=== PATIENT | male | born 1980 | race Caucasian/White ===

== ENCOUNTER 2018-12-05 15:58 | Emergency (ER) | payer OTHER ==
[2018-12-05 16:02] VITALS: TEMP 98.9
[2018-12-05] MEDS ORDERED: SODIUM CHLORIDE 0.9% 1,000 ML IV ONE (16:17)
[2018-12-05] MEDS ORDERED: KETOROLAC 30 MG/ML 1 ML VIAL IVP STA (16:17)
[2018-12-05] MEDS ORDERED: FAMOTIDINE 20 MG/2 ML VIAL IV STA (16:17)
--- NOTE | 2018-12-05 16:22 | ED ---
Chest Pain HPI - General Chief Complaint: Chest Pain Stated Complaint: Chest pain Time Seen by Provider: 12/05/18 16:03 Source: patient Mode of arrival: ambulatory Limitations: no limitations - History of Present Illness Initial Comments: 37-year-old alcoholic male presenting with substernal, nonradiating chest pressure that has been present for over a month, is constant, is not alleviated by anything, and is worsened with exertion. He admits to mild shortness of breath but denies any other anginal equivalents. Patient is a daily drinker, has never stopped drinking long enough to see if he would go into withdrawal or have seizures. He has never seen a doctor. He was prompted to come to the emergency department today because he took a CPR Class and became concerned that he may have a heart problem. Patient denies any personal or family history of early NV. He denies any personal history of high cholesterol. Patient does abuse tobacco. He has never had a stress test. - Related Data Home Medications Medication Instructions Recorded Confirmed Lisinopril 30 mg PO DAILY 12/05/18 12/05/18 Previous Rx's Medication Instructions Recorded Ranitidine HCl [Zantac] 150 mg PO HS #30 tab 12/05/18 Allergies Allergy/AdvReac Type Severity Reaction Status Date / Time No Known Allergies Allergy Verified 12/05/18 16:42 Review of Systems ROS Statement: Those systems with pertinent positive or pertinent negative responses have been documented in the HPI. Review of Systems Constitutional: Denies fever, chills Eyes: Denies change in vision, Denies pain Ears, nose, mouth, throat: Denies headaches, Denies sore throat Cardiovascular: Positive chest pain. Denies palpitations Respiratory: Denies shortness of breath, Denies cough Gastrointestinal: Denies abdominal pain. Denies nausea, vomiting, diarrhea. Genitourinary: Denies hematuria, Denies infections Musculoskeletal: Denies pain, Denies swelling Integumentary: Denies rash Neurological: Denies headache, focal weakness, focal numbness Psychiatric: Denies anxiety, Denies depression Hematologic/Lymphatic: Denies easy bleeding or bruising ROS Other: All systems not noted in ROS Statement are negative. EKG Findings - EKG Comments: EKG Findings:: EKG shows sinus tachycardia at a rate of 117 bpm. OH interval 156 ms. QRS duration 94 ms. QT/QTC 326/[address] segment elevation, depression. No prolonged QT/QTc or OH interval. No dysrythmia noted. Past Medical History Past Medical History: No Reported History History of Any Multi-Drug Resistant Organisms: None Reported Past Surgical History: No Surgical Hx Reported Past Psychological History: No Psychological Hx Reported Smoking Status: Current every day smoker Past Alcohol Use History: Occasional Past Drug Use History: None Reported General Exam - General Exam Comments Initial Comments: General: Awake, alert, No acute Distress HENT: Normocephalic. Atraumatic Eyes: PERRL. EOMI. No scleral icterus. No injected conjunctiva Neck: Full ROM Chest/Lungs: Clear to auscultation bilaterally. No wheezing, rhonchi, or rales Cardiac: Sinus tachycardia No murmurs or rubs. No lower extremity edema Abdomen/GI: Soft, nontender, nondistended. No rebound, guarding, or rigidity. Musculoskeletal: Full ROM Skin: Warm, dry, intact Neurologic: A/Ox3, no weakness, no sensory deficit, no abnormal gait, no coordination deficit Limitations: no limitations Course Vital Signs 12/05/18 12/05/18 16:00 17:31 Temperature 98.9 F Pulse Rate 104 H 87 Respiratory 18 16 Rate Blood Pressure 163/97 147/83 O2 Sat by Pulse 97 99 Oximetry Chest Pain MDM - MDM 37-year-old male presenting with 1 month of chest pain. Initial exam the patient is awake, alert, no acute distress. He is tachycardic but vital signs otherwise stable. Perc positive because of his tachycardia. His well score is 0. Patient refusing all medications that were ordered. Patient feels improved in the department. His HEART score is 0. His d-dimer is negative. Patient's CXR is negative for acute process. Doesn't is at bedside who can drive him home, as the patient is intoxicated, however he is chronically sober on exam. Thus the patient taking a daily PPI as his symptoms could be secondary to alcohol gastritis/esophagitis. I have advised him on alcohol cessation, establishing a primary care physician, and seeing a GI doctor. Patient verbalizes understanding. No further emergent workup indicated. The patient was given return to ED instructions. They were instructed to follow up with their primary care provider. Stable for discharge at this time. - Wells Criteria Clinical Symptoms of DVT: (0) No No Alternative Diagnosis: (0) No Immobilization of Surgery in Previous 4 Weeks: (0) No Previous DVT/PE: (0) No Hemoptysis: (0) No Malignancy: (0) No Disposition Clinical Impression: Chest pain, Alcohol abuse Disposition: HOME SELF-CARE Condition: Good Instructions (If sedation given, give patient instructions): Chest Pain (ED), Costochondritis (ED), Gastroesophageal Reflux Disease (ED), Abuse of Alcohol (ED) Additional Instructions: Try to cut down on the amount of alcohol you are ingesting. Make an appointment to see the primary care doctor and follow up within one week. Return if your symptoms worsen. Prescriptions: Ranitidine HCl [Zantac] 150 mg PO HS #30 tab Is patient prescribed a controlled substance at d/c from ED?: No Referrals: Nonstaff,Physician [REFERRING] - 1-2 days Savanna Garcia MD [STAFF PHYSICIAN] - 1-2 days María Miranda MD [Medical Doctor] - 1-2 days
[2018-12-05 16:32] LABS: Basophils # (A) 0.1 k/uL (0-0.2); Basophils % (A) 1 %; Eosinophils # (A) 0.1 k/uL (0-0.7); Eosinophils % (A) 1 %; HCT 49.4 % (39.0-53.0); HGB 16.7 gm/dL (13.0-17.5); Lymphocytes # (A) 2.6 k/uL (1.0-4.8); Lymphocytes % (A) 28 %; MCH 34.2 pg (25.0-35.0); MCHC 33.7 g/dL (31.0-37.0); MCV 101.3 fL (80.0-100.0); Macrocytosis Slight; Mean Platelet Volume 6.9; Monocytes # (A) 0.4 k/uL (0-1.0); Monocytes % (A) 4 %; Neutrophils # (A) 5.9 k/uL (1.3-7.7); Neutrophils % (A) 63 %; Platelet Count 277 k/uL (150-450); RBC 4.88 m/uL (4.30-5.90); RDW 13.7 % (11.5-15.5); WBC 9.3 k/uL (3.8-10.6)
[2018-12-05 16:45] LABS: ALT 90 U/L (21-72); AST 104 U/L (17-59); African American GFR (CKD) >90 (>60 ml/min/1.73 sqM); Albumin 4.5 g/dL (3.5-5.0); Alkaline Phosphatase 96 U/L (38-126); Anion Gap 13 mmol/L; Bilirubin, Delta 0.1 mg/dL (0.0-0.2); Bilirubin,Unconjugated 0.6 mg/dL (0.0-1.1); Blood Urea Nitrogen 14 mg/dL (9-20); Calcium 8.9 mg/dL (8.4-10.2); Carbon Dioxide 21 mmol/L (22-30); Chloride 109 mmol/L (98-107); Glucose 105 mg/dL (74-99); Non-African American GFR(CKD) 84 (>60 ml/min/1.73 sqM); Potassium 4.1 mmol/L (3.5-5.1); Sodium 143 mmol/L (137-145); Total Bilirubin 0.7 mg/dL (0.2-1.3); Total Protein 7.5 g/dL (6.3-8.2)
--- NOTE | 2018-12-05 16:50 | XR ---
EXAMINATION TYPE: XR chest 2V DATE OF EXAM: 12/05/2018 COMPARISON: NONE HISTORY: Chest pain TECHNIQUE: Frontal and lateral views of the chest are obtained. FINDINGS: Heart and mediastinum are normal. Lungs are clear. Diaphragm is normal. Bony thorax appear s normal. IMPRESSION: Normal chest.
[2018-12-05 17:00] LABS: Alcohol 359 mg/dL
[2018-12-05 17:34] VITALS: BP 147/83; PULSE 87; RESP 16
== END 2018-12-05 17:34 | disposition home or self-care (01) ==
LOC: EC 15:58
DX: F10.129 Alcohol abuse with intoxication, unspecified (principal); R07.89 Other chest pain; R00.0 Tachycardia, unspecified; R06.02 Shortness of breath; F17.200 Nicotine dependence, unspecified, uncomplicated; Z82.49 Family history of ischemic heart disease and other diseases of the circulatory system; Z53.20 Procedure and treatment not carried out because of patient's decision for unspecified reasons
CPT/HCPCS: 36415; 71046; 80048; 80076; 80320; 83690; 83735; 84484; 85025; 85379; 93005; 99285

== ENCOUNTER 2019-08-03 17:22 | Inpatient (IN) | payer BC ==
[2019-08-03] MEDS ORDERED: SODIUM CHLORIDE 0.9% 1,000 ML IV STA (17:56)
[2019-08-03] MEDS ORDERED: KETOROLAC 30 MG/ML 1 ML VIAL IVP STA (17:56)
[2019-08-03 18:19] LABS: Basophils # (A) 0.1 k/uL (0-0.2); Basophils % (A) 0 %; Eosinophils # (A) 0.1 k/uL (0-0.7); Eosinophils % (A) 1 %; HCT 47.9 % (39.0-53.0); HGB 17.5 gm/dL (13.0-17.5); Lymphocytes # (A) 1.9 k/uL (1.0-4.8); Lymphocytes % (A) 15 %; MCH 36.2 pg (25.0-35.0); MCHC 36.5 g/dL (31.0-37.0); MCV 99.2 fL (80.0-100.0); Mean Platelet Volume 7.2; Monocytes # (A) 0.7 k/uL (0-1.0); Monocytes % (A) 5 %; Neutrophils # (A) 9.1 k/uL (1.3-7.7); Neutrophils % (A) 76 %; Platelet Count 216 k/uL (150-450); RBC 4.83 m/uL (4.30-5.90); RDW 13.7 % (11.5-15.5)
--- NOTE | 2019-08-03 18:38 | ED ---
Abdominal Pain HPI - General Chief Complaint: Abdominal Pain Stated Complaint: Poss appendicitis Time Seen by Provider: 08/03/19 17:36 Source: patient Mode of arrival: ambulatory Limitations: no limitations - History of Present Illness Initial Comments: Patient is a 38-year-old male presenting to emergency Department with complaints of right-sided abdominal pain 2 days. Patient had a video conference with his PCP who sent him into the ER for evaluation for possible appendicitis. Patient is also having associated nausea, vomiting with this as well however he states he has had vomiting on and off for months now. He has seen his PCP for the vomiting. Patient also admits to being an alcoholic. He states he drinks "a lot each day." Patient states that abdominal pain started yesterday around his belly button and has migrated to his right lower quadrant. He states he feels best when he is laying still. He has increased pain with standing and bending over. He denies any abdominal surgeries in the past. He rates his pain a 6/10. He had normal bowel movement yesterday. He states he's been having chills and sweats but no documented fevers. He denies chest pain, shortness of breath, cough. He has no other complaints at this time. Upon arrival to the ER, his temperature is 99.2, pulse 108, BP 149/104, respiratory rate 18, 97% on room air. - Related Data Home Medications Medication Instructions Recorded Confirmed Escitalopram [Lexapro] 20 mg PO HS 08/03/19 08/03/19 Lisinopril [Zestril] 10 mg PO HS 08/03/19 08/03/19 Allergies Allergy/AdvReac Type Severity Reaction Status Date / Time No Known Allergies Allergy Verified 08/03/19 20:24 Review of Systems ROS Statement: Those systems with pertinent positive or pertinent negative responses have been documented in the HPI. ROS Other: All systems not noted in ROS Statement are negative. Past Medical History Past Medical History: No Reported History History of Any Multi-Drug Resistant Organisms: None Reported Past Surgical History: No Surgical Hx Reported Past Psychological History: No Psychological Hx Reported Smoking Status: Current every day smoker Past Alcohol Use History: Occasional Past Drug Use History: None Reported General Exam - General Exam Comments Initial Comments: GENERAL: Well-appearing, well-nourished and in no acute distress. HEAD: Atraumatic, normocephalic. EYES: Pupils equal round and reactive to light, extraocular movements intact, sclera anicteric, conjunctiva are normal. ENT: TMs normal, nares patent, oropharynx clear without exudates. Moist mucous membranes. NECK: Normal range of motion, supple without lymphadenopathy or JVD. LUNGS: Breath sounds clear to auscultation bilaterally and equal. No wheezes rales or rhonchi. HEART: Regular rate and rhythm without murmurs, rubs or gallops. ABDOMEN: Tender to palpation of the umbilical, right lower quadrant region. Mild tenderness of the right upper quadrant. Positive guarding, positive Rovsing sign. Soft, normoactive bowel sounds. No masses appreciated. : Deferred EXTREMITIES: Normal range of motion, no pitting or edema. No clubbing or cyanosis. NEUROLOGICAL: Normal speech, normal gait. PSYCH: Normal mood, normal affect. SKIN: Warm, Dry, normal turgor, no rashes or lesions noted. Limitations: no limitations Course Vital Signs 08/03/19 08/03/19 17:28 19:17 Temperature 99.2 F Pulse Rate 108 H 94 Respiratory 18 18 Rate Blood Pressure 149/104 132/92 O2 Sat by Pulse 97 99 Oximetry Medical Decision Making - Medical Decision Making Patient is a 38-year-old male presenting with right lower quadrant pain 2 days. Associated nausea and vomiting. Patient admits to being alcoholic. Patient was slightly tachycardia arrival at 108, temp 99.2. Exam reveals right lower quadrant tenderness and mild right upper quadrant tenderness. Laboratory reveals slight leukocytosis at 12, sodium is 131, lactic acid is 1.6. Transaminitis, lipase is normal. Urine is normal. Serum alcohol is 298. CT of the abdomen shows a normal appendix. There is inflammatory changes along an 8 cm segment of the ileum in the right lower quadrant. There is concern for infla mmatory ileitis as well as a Meckels diverticulitis is also consideration. Hepatomegaly is also mention. Patient was given fluids, pain control. He is comfortable at this time. She'll be started on antibiotics. Spoke with Dr. Stokes who recommended admission. Patient will be admitted under Dr. Schafer with surgery on consult. Patient will be started on antibiotics. [facility] protocol in place. Patient is in agreement with this plan of care. Case discussed with Dr. Dunham. - Lab Data Result diagrams: 08/03/19 17:57 08/03/19 17:57 Lab Results 08/03/19 08/03/19 08/03/19 Range/Units 17:57 17:57 17:57 WBC 12.0 H (3.8-10.6) k/uL RBC 4.83 (4.30-5.90) m/uL Hgb 17.5 (13.0-17.5) gm/dL Hct 47.9 (39.0-53.0) % MCV 99.2 (80.0-100.0) fL MCH 36.2 H (25.0-35.0) pg MCHC 36.5 (31.0-37.0) g/dL RDW 13.7 (11.5-15.5) % Plt Count 216 (150-450) k/uL Neutrophils % 76 % Lymphocytes % 15 % Monocytes % 5 % Eosinophils % 1 % Basophils % 0 % Neutrophils # 9.1 H (1.3-7.7) k/uL Lymphocytes # 1.9 (1.0-4.8) k/uL Monocytes # 0.7 (0-1.0) k/uL Eosinophils # 0.1 (0-0.7) k/uL Basophils # 0.1 (0-0.2) k/uL APTT 27.8 (22.0-30.0) sec Sodium 131 L (137-145) mmol/L Potassium 4.4 (3.5-5.1) mmol/L Chloride 100 (98-107) mmol/L Carbon Dioxide 19 L (22-30) mmol/L Anion Gap 12 mmol/L BUN 13 (9-20) mg/dL Creatinine 0.87 (0.66-1.25) mg/dL Est GFR (CKD-EPI)AfAm >90 (>60 ml/min/1.73 sqM) Est GFR (CKD-EPI)NonAf >90 (>60 ml/min/1.73 sqM) Glucose 106 H (74-99) mg/dL Plasma Lactic Acid Jatinder (0.7-2.0) mmol/L Calcium 8.4 (8.4-10.2) mg/dL Magnesium 1.8 (1.6-2.3) mg/dL Total Bilirubin 1.2 (0.2-1.3) mg/dL AST 496 H (17-59) U/L ALT 219 H (4-49) U/L Alkaline Phosphatase 233 H (38-126) U/L Total Protein 7.2 (6.3-8.2) g/dL Albumin 3.9 (3.5-5.0) g/dL Amylase 87 (30-110) U/L Lipase 233 (23-300) U/L Serum Alcohol 298 H* mg/dL 08/03/19 Range/Units 17:57 WBC (3.8-10.6) k/uL RBC (4.30-5.90) m/uL Hgb (13.0-17.5) gm/dL Hct (39.0-53.0) % MCV (80.0-100.0) fL MCH (25.0-35.0) pg MCHC (31.0-37.0) g/dL RDW (11.5-15.5) % Plt Count (150-450) k/uL Neutrophils % % Lymphocytes % % Monocytes % % Eosinophils % % Basophils % % Neutrophils # (1.3-7.7) k/uL Lymphocytes # (1.0-4.8) k/uL Monocytes # (0-1.0) k/uL Eosinophils # (0-0.7) k/uL Basophils # (0-0.2) k/uL APTT (22.0-30.0) sec Sodium (137-145) mmol/L Potassium (3.5-5.1) mmol/L Chloride (98-107) mmol/L Carbon Dioxide (22-30) mmol/L Anion Gap mmol/L BUN (9-20) mg/dL Creatinine (0.66-1.25) mg/dL Est GFR (CKD-EPI)AfAm (>60 ml/min/1.73 sqM) Est GFR (CKD-EPI)NonAf (>60 ml/min/1.73 sqM) Glucose (74-99) mg/dL Plasma Lactic Acid Jatinder 1.6 (0.7-2.0) mmol/L Calcium (8.4-10.2) mg/dL Magnesium (1.6-2.3) mg/dL Total Bilirubin (0.2-1.3) mg/dL AST (17-59) U/L ALT (4-49) U/L Alkaline Phosphatase (38-126) U/L Total Protein (6.3-8.2) g/dL Albumin (3.5-5.0) g/dL Amylase (30-110) U/L Lipase (23-300) U/L Serum Alcohol mg/dL Disposition Clinical Impression: Ileitis, Transaminitis, Abdominal pain Disposition: [facility]MITT[facility] Condition: Stable Is patient prescribed a controlled substance at d/c from ED?: No Decision Date: 08/03/19 Decision Time: 20:20
--- NOTE | 2019-08-03 18:40 | CT ---
EXAMINATION TYPE: CT abdomen pelvis w con DATE OF EXAM: 08/03/2019 COMPARISON: NONE HISTORY: 38-year-old male RLQ pain TECHNIQUE: Contiguous axial scanning of the abdomen and pelvis following administration of 100 ml Iso charu 300 IV contrast. Delayed images through the kidneys and coronal/sagittal reconstructions perform ed. CT DLP: 908.2 mGycm Automated exposure control for dose reduction was used. FINDINGS: LUNG BASES: No significant abnormality is appreciated. LIVER/GB: Liver enlarged at 22.0 cm with marked low attenuation. Portal venous system is patent. No b iliary ductal dilatation. Gallbladder mildly hydropic and 4.2 cm wide but without any surrounding inf lammation, likely due to fasting state. PANCREAS: No significant abnormality is seen. SPLEEN: No significant abnormality is seen. ADRENALS: No significant abnormality is seen. KIDNEYS: No significant abnormality is seen. BOWEL: No dilated small bowel or free air. Prominent fluid-filled small bowel loops throughout. In t he right lower quadrant, there is an 8 cm long segment of abnormal ileum showing variable mild to mod erate circumferential wall thickening, mucosal thickening, and a focal 1.6 cm area of nodular submuco willis enhancement. This segment of small bowel seems to have an end-to-side configuration, refer to cor onal images 35 through 42, with a thickened blind-ending limb. The appendix is visualized and is normal. Mild stool burden. No pericolonic inflammatory change. LYMPH NODES: No mesenteric or retroperitoneal lymphadenopathy. PELVIS: Bladder urine distended. Mild pelvic free fluid noted. No pelvic lymphadenopathy. BONES: No osseous destructive process. IMPRESSION: 1. NORMAL APPENDIX. 2. HOWEVER, THERE IS INFLAMMATION CENTERED ALONG AN 8 CM SEGMENT OF ILEUM IN THE RIGHT LOWER QUADRANT . BOWEL HERE HAS AN UNUSUAL END TO SIDE CONFIGURATION (REFER TO CORONAL IMAGE 42) WITH A THICKENED, B KIA ENDING LIMB (CORONAL IMAGES 35 THROUGH 40). A DEVELOPMENTAL ABNORMALITY AND ASSOCIATED INFECTIOU S/INFLAMMATORY ILEITIS IS A CONSIDERATION. MECKEL'S DIVERTICULITIS IS ALSO A CONSIDERATION. 3. GIVEN A 1.6 CM AREA OF NODULAR SUBMUCOSAL ENHANCEMENT HERE, IF THIS DOES REPRESENT A MECKEL'S DIVE RTICULUM, THE PRESENCE OF ECTOPIC MUCOSA (SUCH GASTRIC MUCOSA) IS A POSSIBILITY. 4. MILD PELVIC FREE FLUID LIKELY REACTIVE TO THE ABOVE-MENTIONED INFLAMMATION. 5. HEPATOMEGALY (22.0 CM) WITH MARKED HEPATIC STEATOSIS. 6. MILD GALLBLADDER HYDROPS LIKELY DUE TO FASTING STATE. CLINICALLY CORRELATE.
[2019-08-03 18:50] LABS: ALT 219 U/L (4-49); AST 496 U/L (17-59); African American GFR (CKD) >90 (>60 ml/min/1.73 sqM); Albumin 3.9 g/dL (3.5-5.0); Alkaline Phosphatase 233 U/L (38-126); Amylase 87 U/L (30-110); Anion Gap 12 mmol/L; Blood Urea Nitrogen 13 mg/dL (9-20); Calcium 8.4 mg/dL (8.4-10.2); Carbon Dioxide 19 mmol/L (22-30); Chloride 100 mmol/L (98-107); Glucose 106 mg/dL (74-99); Magnesium 1.8 mg/dL (1.6-2.3); Non-African American GFR(CKD) >90 (>60 ml/min/1.73 sqM); Potassium 4.4 mmol/L (3.5-5.1); Sodium 131 mmol/L (137-145); Total Bilirubin 1.2 mg/dL (0.2-1.3); Total Protein 7.2 g/dL (6.3-8.2)
[2019-08-03 18:57] LABS: Alcohol 298 mg/dL
[2019-08-03 19:23] LABS: Appearance,Urine Clear (Clear); Bilirubin,Urine Negative (Negative); Blood,Urine Negative (Negative); Color,Urine Colorless; Glucose,Urine (UA) Negative (Negative); Ketones,Urine Negative (Negative); Leukocyte Esterase,Urine Negative (Negative); Nitrite,Urine Negative (Negative); PH, Urine 6.5 (5.0-8.0); Protein,Urine Negative (Negative); Specific Gravity,Urine 1.009 (1.001-1.035); Urobilinogen,Urine <2.0 mg/dL (<2.0)
[2019-08-03] MEDS ORDERED: MORPHINE SULFATE 4 MG/ML SYRINGE IV PRN (20:10)
[2019-08-03] MEDS ORDERED: NALOXONE 0.4 MG/ML 1 ML VIAL IV PRN (20:10)
[2019-08-03] MEDS ORDERED: ACETAMINOPHEN TAB 325 MG TAB PO PRN (20:10)
[2019-08-03] MEDS ORDERED: KETOROLAC 30 MG/ML 1 ML VIAL IVP PRN (20:10)
[2019-08-03] MEDS ORDERED: ONDANSETRON 4 MG/2 ML VIAL IVP PRN (20:10)
[2019-08-03] MEDS ORDERED: LORazepam 2 MG/ML INJ IV PRN ×3 (20:14)
[2019-08-03] MEDS ORDERED: THIAMINE 100 MG/ML 2 ML VIAL IM STA (20:14)
[2019-08-03] MEDS ORDERED: PIPERACILLIN-TAZOBACTAM 3.375 GM in SODIUM CHLORIDE 0.9% 100 ML IVPB STA (20:16)
[2019-08-03] MEDS: SODIUM CHLORIDE 0.9% 1,000 ML IV SCH (20:37)
[2019-08-03] MEDS: ESCITALOPRAM 20 MG TAB PO SCH (22:54)
[2019-08-03] MEDS: LISINOPRIL 10 MG TAB PO SCH (22:54)
[2019-08-04] MEDS: SODIUM CHLORIDE 0.9% 1,000 ML IV SCH ×2 (07:49→20:26)
[2019-08-04] MEDS: PANTOPRAZOLE 40 MG/10 ML VIAL IV SCH (07:49)
[2019-08-04] MEDS: THIAMINE 100 MG TAB PO SCH ×2 (07:49→16:20)
[2019-08-04] MEDS ORDERED: SODIUM CHLORIDE 0.9% 2,000 ML IV ONE (09:08)
--- NOTE | 2019-08-04 09:39 | P.GSCN ---
History of Present Illness Consult date: 08/04/19 History of present illness: CHIEF COMPLAINT: Right lower quadrant abdominal pain HISTORY OF PRESENT ILLNESS: The patient is a 38 year old male who presents with less than 1 day history of right lower quadrant abdominal pain. He reports being in doors and playing with his 5-year-old and 13-year-old children including wrestling. He reported the pain felt more like a muscular ache along the right abdominal wall. No reports of fevers or chills. No prior episodes. No nausea and vomiting. He also confirms daily alcohol use. He presented to the emergency room with acute alcohol intoxication serum alcohol level. He also reports pre-existing history of liver disease where less than 2 weeks ago he had additional blood work performed at his primary care office. He resents with pre- existing liver disease. General surgery is consulted for right lower quadrant abdominal pain and abnormal computed tomography scan. He reports since admission, abdominal pain is moderately improved. In fact, he is eager to go home. PAST MEDICAL HISTORY: See list. PAST SURGICAL HISTORY: See list. MEDICATIONS: See list. ALLERGIES: See list. SOCIAL HISTORY: See list. FAMILY HISTORY: See list. REVIEW OF ORGAN SYSTEMS: CONSTITUTIONAL: No fevers or chills. No recent weight loss. EYES: Denies any trouble with vision. No glasses. HEENT: No difficulties with hearing. No nosebleeds. No difficulty swallowing. RESPIRATORY: Denies pneumonia. Denies any troubles with breathing or dyspnea on exertion. CARDIOVASCULAR: Denies any chest pain, palpitations, or recent heart attacks. GASTROINTESTINAL: Denies fatty food intolerance. Denies change in bowel habits and gas bloat. GENITOURINARY: Denies any blood in urine or increased urinary frequency. NEUROLOGICAL: Denies any numbness or tingling along the distal extremities. No seizure disorders or headaches. MUSCULOSKELETAL: Denies any back pain, stiffness or joint arthritis. SKIN: No current skin cancer. No rash. PSYCHIATRIC: Denies current depression or suicidal thoughts. ENDOCRINE: Denies current thyroid disorders. Denies any blood sugar glucose intolerance. HEME/LYMPHATIC: Denies any lumps and bumps around the neck. No recent deep venous thrombosis. ALLERGY/IMMUNOLOGY: No immunoglobulin therapy. No immune deficiencies. BREAST: Denies current breast lumps, pain or nipple discharge. PHYSICAL EXAM: VITALS: Reviewed CONSTITUTIONAL: Well developed and in no acute distress. EYES: Conjuctivae without sclera icterus. Pupils are equally round and reactive to light. Extraocular movements grossly intact. HEAD, EARS, NOSE, THROAT: Moist buccal mucosa. Head is atraumatic, normocephalic. Hears conversational speech. No nasal drainage. NECK: No JV distention. No thyroidomegaly. RESPIRATORY: Non-labored respirations and equal bilateral excursions. No gross wheezes. CARDIOVASCULAR: Regular rate and rhythm. Extremities without moderate edema. ABDOMEN: Non-distended. No peritonitis. Minimal tenderness right lower quadrant. MUSCULOSKELETAL: Range of motion bilateral upper extremities within normal limits. SKIN: Well perfused NEUROLOGIC: Cranial nerves II through XII grossly intact. No focal or lateralizing signs. PSYCH: Appropriate affect. Alert and oriented to person, place and time. Displays appropriate insight. CLINCAL LABS: Reviewed. Liver enzymes moderately elevated. AST elevated at 496, ALT elevated 219, alkaline phosphatase elevated 233, serum alcohol level 298 IMAGING: Independently reviewed CT of the abdomen and pelvis demonstrating large Meckel's diverticulum of the right pelvis with inflammation. No perforation. No free air. RADIOLOGY: Report reviewed with 8 cm inflammation of the ileum ASSESSMENT: 1. Abnormal computed tomography scan 2. Right lower uadrant abdominal pain 3. Meckel's diverticulitis 4. Chronic alcohol abuse 5. Chronic tobacco abuse 6. Leukocytosis 7. Dehydration secondary to alcohol abuse PLAN: 1. 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 His abdominal pain has improved with conservative management. 2. He also comes in with acute alcohol intoxication with elevated liver enzymes where surgical intervention at this time would be very risk hence conservative management advised 3. This morning, reports feeling better. Recommend continue IV antibiotics. 4. No acute surgical intervention as he reports moderate clinical improvement 5. IV fluid hydration secondary to acute alcohol intoxication 6. Recommend continue with IV antibiotic for at least 24 hours including discharge home with oral antibiotics. 7. On review of his MAR, patient only had single dose of antibiotics from the ER and will need continuous IV antibiotics 8. Patient understands continued hospitalization at least until tomorrow for at least 24 hour IV antibiotics management. 9. Maybe discharge when he has normal white count and has completed at minimum 24 hours of IV antibiotics with outpatient management 10. Education and counseling for alcohol abuse also described and iscussed with him 11. Repeat CBC and C-reactive protein also ordered 12. May benefit from repeat liver enzyme levels including ultrasound of the liver Thank you for this kind consultation. Past Medical History Past Medical History: No Reported History History of Any Multi-Drug Resistant Organisms: None Reported Past Surgical History: No Surgical Hx Reported Additional Past Surgical History / Comment(s): [place] teeth Past Anesthesia/Blood Transfusion Reactions: No Reported Reaction Past Psychological History: No Psychological Hx Reported Smoking Status: Current every day smoker Past Alcohol Use History: Occasional Past Drug Use History: None Reported - Past Family History Father Family Medical History: CVA/TIA, Myocardial Infarction ([place]) Mother Family Medical History: Cancer Additional Family Medical History / Comment(s): Breast cancer Medications and Allergies Home Medications Medication Instructions Recorded Confirmed Type Escitalopram [Lexapro] 20 mg PO HS 08/03/19 08/03/19 History Lisinopril [Zestril] 10 mg PO HS 08/03/19 08/03/19 History Allergies Allergy/AdvReac Type Severity Reaction Status Date / Time No Known Allergies Allergy Verified 08/03/19 20:24 Surgical - Exam Vital Signs Temp Pulse Resp BP Pulse Ox 99.2 F 108 H 18 149/104 97 08/03/19 17:28 08/03/19 17:28 08/03/19 17:28 08/03/19 17:28 08/03/19 17:28 Results - Labs 08/04/19 09:14 08/03/19 17:57 Abnormal Lab Results - Last 24 Hours (Table) 08/03/19 08/03/19 Range/Units 17:57 17:57 WBC 12.0 H (3.8-10.6) k/uL MCH 36.2 H (25.0-35.0) pg Neutrophils # 9.1 H (1.3-7.7) k/uL Sodium 131 L (137-145) mmol/L Carbon Dioxide 19 L (22-30) mmol/L Glucose 106 H (74-99) mg/dL AST 496 H (17-59) U/L ALT 219 H (4-49) U/L Alkaline Phosphatase 233 H (38-126) U/L Serum Alcohol 298 H* mg/dL Diabetes panel 08/03/19 Range/Units 17:57 Sodium 131 L (137-145) mmol/L Potassium 4.4 (3.5-5.1) mmol/L Chloride 100 (98-107) mmol/L Carbon Dioxide 19 L (22-30) mmol/L BUN 13 (9-20) mg/dL Creatinine 0.87 (0.66-1.25) mg/dL Glucose 106 H (74-99) mg/dL Calcium 8.4 (8.4-10.2) mg/dL AST 496 H (17-59) U/L ALT 219 H (4-49) U/L Alkaline Phosphatase 233 H (38-126) U/L Total Protein 7.2 (6.3-8.2) g/dL Albumin 3.9 (3.5-5.0) g/dL Calcium panel 08/03/19 Range/Units 17:57 Calcium 8.4 (8.4-10.2) mg/dL Albumin 3.9 (3.5-5.0) g/dL Pituitary panel 08/03/19 Range/Units 17:57 Sodium 131 L (137-145) mmol/L Potassium 4.4 (3.5-5.1) mmol/L Chloride 100 (98-107) mmol/L Carbon Dioxide 19 L (22-30) mmol/L BUN 13 (9-20) mg/dL Creatinine 0.87 (0.66-1.25) mg/dL Glucose 106 H (74-99) mg/dL Calcium 8.4 (8.4-10.2) mg/dL Adrenal panel 08/03/19 Range/Units 17:57 Sodium 131 L (137-145) mmol/L Potassium 4.4 (3.5-5.1) mmol/L Chloride 100 (98-107) mmol/L Carbon Dioxide 19 L (22-30) mmol/L BUN 13 (9-20) mg/dL Creatinine 0.87 (0.66-1.25) mg/dL Glucose 106 H (74-99) mg/dL Calcium 8.4 (8.4-10.2) mg/dL Total Bilirubin 1.2 (0.2-1.3) mg/dL AST 496 H (17-59) U/L ALT 219 H (4-49) U/L Alkaline Phosphatase 233 H (38-126) U/L Total Protein 7.2 (6.3-8.2) g/dL Albumin 3.9 (3.5-5.0) g/dL Assessment and Plan (1) Alcohol intoxication Current Visit: Yes Status: Acute Code(s): F10.929 - ALCOHOL USE, UNSPECIFIED WITH INTOXICATION, UNSPECIFIED SNOMED Code(s): 80302220 (2) Tobacco abuse Current Visit: Yes Status: Acute Code(s): Z72.0 - TOBACCO USE SNOMED Code(s): 368941815 (3) Alcohol abuse Current Visit: Yes Status: Acute Code(s): F10.10 - ALCOHOL ABUSE, UNCOMPLICATED SNOMED Code(s): 20709061 (4) Dehydration Current Visit: Yes Status: Acute Code(s): E86.0 - DEHYDRATION SNOMED Code(s): 59762898 (5) Leukocytosis Current Visit: Yes Status: Acute Code(s): D72.829 - ELEVATED WHITE BLOOD CELL COUNT, UNSPECIFIED SNOMED Code(s): 909462559 (6) Ileitis Current Visit: Yes Status: Acute Code(s): K52.9 - NONINFECTIVE GASTROENTERITIS AND COLITIS, UNSPECIFIED SNOMED Code(s): 10459475 (7) Meckel's diverticulitis Current Visit: Yes Status: Acute Code(s): Q43.0 - MECKEL'S DIVERTICULUM (DISPLACED) (HYPERTROPHIC) SNOMED Code(s): 95460984 (8) Transaminitis Current Visit: Yes Status: Acute Code(s): R74.0 - NONSPEC ELEV OF LEVELS OF TRANSAMNS & LACTIC ACID DEHYDRGNSE SNOMED Code(s): 869313711
[2019-08-04] MEDS: PIPERACILLIN-TAZOBACTAM 3.375 GM in SODIUM CHLORIDE 0.9% 100 ML IVPB SCH ×3 (10:19→23:34)
[2019-08-04 10:23] LABS: Basophils # (A) 0.1 k/uL (0-0.2); Basophils % (A) 1 %; Eosinophils # (A) 0.1 k/uL (0-0.7); Eosinophils % (A) 1 %; HCT 45.7 % (39.0-53.0); Lymphocytes # (A) 1.3 k/uL (1.0-4.8); Lymphocytes % (A) 15 %; MCH 35.8 pg (25.0-35.0); MCV 102.1 fL (80.0-100.0); Macrocytosis Slight; Mean Platelet Volume 7.7; Monocytes # (A) 0.5 k/uL (0-1.0); Monocytes % (A) 6 %; Neutrophils # (A) 6.7 k/uL (1.3-7.7); Neutrophils % (A) 76 %; Platelet Count 187 k/uL (150-450); RBC 4.47 m/uL (4.30-5.90); WBC 8.8 k/uL (3.8-10.6)
[2019-08-04] MEDS ORDERED: LISINOPRIL 10 MG TAB PO STA (14:28)
[2019-08-04] MEDS: ESCITALOPRAM 20 MG TAB PO SCH (20:26)
[2019-08-04] MEDS: LISINOPRIL 10 MG TAB PO SCH (20:26)
[2019-08-04 22:02] LABS: ALT 178 U/L (4-49); AST 368 U/L (17-59); African American GFR (CKD) >90 (>60 ml/min/1.73 sqM); Albumin 3.3 g/dL (3.5-5.0); Alkaline Phosphatase 233 U/L (38-126); Anion Gap 11 mmol/L; Blood Urea Nitrogen 15 mg/dL (9-20); Calcium 8.4 mg/dL (8.4-10.2); Carbon Dioxide 19 mmol/L (22-30); Chloride 103 mmol/L (98-107); Glucose 88 mg/dL (74-99); Non-African American GFR(CKD) >90 (>60 ml/min/1.73 sqM); Sodium 133 mmol/L (137-145); Total Bilirubin 0.9 mg/dL (0.2-1.3); Total Protein 6.4 g/dL (6.3-8.2)
[2019-08-04 22:03] LABS: Potassium 4.8 mmol/L (3.5-5.1)
--- NOTE | 2019-08-04 23:17 | P.HPIM ---
History of Present Illness H&P Date: 08/04/19 Chief Complaint: abd pain Alexey Harkins is a 38 year old male with PMH of HTN who was sent to the ED after complaining of 1 day history of abdominal pain and chills. He reports being in doors and playing with his 5-year-old and 13-year-old children including wrestling. He reported the pain felt more like a muscular ache along the right abdominal wall. No prior episodes. No nausea and vomiting. He also confirms daily alcohol use. He also reports pre-existing history of liver disease where less than 2 weeks ago he had additional blood work performed at his primary care office. In the ED he underwent CT scan which did show a 1.6 cm nodule as well as 8 cm region of inflammation in the ileum which is suspected to represent infected meckels diverticulum. Labs significant for WBC 12k, chronically elevated LFTs, serum alcohol 298. He was started on zosyn and reports significant improvement in his abdominal pain today. Review of Systems All systems: negative Constitutional: Denies chills, Denies fever Eyes: denies blurred vision, denies pain Ears, nose, mouth and throat: Denies headache, Denies sore throat Cardiovascular: Denies chest pain, Denies shortness of breath Respiratory: Denies cough Gastrointestinal: Reports abdominal pain, Denies diarrhea, Denies nausea, Denies vomiting Musculoskeletal: Denies myalgias Integumentary: Denies pruritus, Denies rash Neurological: Denies numbness, Denies weakness Psychiatric: Denies anxiety, Denies depression Endocrine: Denies fatigue, Denies weight change Past Medical History Past Medical History: No Reported History History of Any Multi-Drug Resistant Organisms: None Reported Past Surgical History: No Surgical Hx Reported Additional Past Surgical History / Comment(s): [place] teeth Past Anesthesia/Blood Transfusion Reactions: No Reported Reaction Past Psychological History: No Psychological Hx Reported Smoking Status: Current every day smoker Past Alcohol Use History: Occasional Past Drug Use History: None Reported - Past Family History Father Family Medical History: CVA/TIA, Myocardial Infarction ([place]) Mother Family Medical History: Cancer Additional Family Medical History / Comment(s): Breast cancer Medications and Allergies Home Medications Medication Instructions Recorded Confirmed Type Escitalopram [Lexapro] 20 mg PO HS 08/03/19 08/03/19 History Lisinopril [Zestril] 10 mg PO HS 08/03/19 08/03/19 History Allergies Allergy/AdvReac Type Severity Reaction Status Date / Time No Known Allergies Allergy Verified 08/03/19 20:24 Physical Exam Vitals: Vital Signs Temp Pulse Resp BP BP Pulse Ox 08/04/19 22:40 169/95 08/04/19 20:38 98.7 F 96 20 175/103 97 08/04/19 16:23 94 174/100 08/04/19 14:13 98.5 F 95 16 164/109 96 08/04/19 04:45 98 F 83 18 154/93 97 08/03/19 23:55 100 Intake and Output 08/04/19 08/04/19 08/04/19 06:59 14:59 22:59 Intake Total 200 Balance 200 Intake: Oral 200 Other: # Voids 1 2 # Bowel Movements 0 General: well nourished, well developed, NAD. Vitals reviewed Eyes: PERRL, EOMI, conjunctiva normal HENT: normocephalic, mucus membranes moist Neck: supple, no JVD Lungs: normal respiratory effort, no wheezes or rales CV: Regular rate and rhythm, no murmur. Peripheral pulses 2+ Abdomen: soft, nondistended, no organomegaly. Mild epigastric tenderness Lymph: no cervical or axillary LAD Skin: warm and dry. Neuro: A&Ox3, normal mood and affect Results CBC & Chem 7: 08/04/19 09:14 08/04/19 09:14 Labs: Abnormal Lab Results - Last 24 Hours (Table) 08/04/19 08/04/19 08/04/19 Range/Units 09:14 09:14 09:14 MCV 102.1 H (80.0-100.0) fL MCH 35.8 H (25.0-35.0) pg Sodium 133 L (137-145) mmol/L Carbon Dioxide 19 L (22-30) mmol/L AST 368 H (17-59) U/L ALT 178 H (4-49) U/L Alkaline Phosphatase 233 H (38-126) U/L C-Reactive Protein 13.5 H (<10.0) mg/L Albumin 3.3 L (3.5-5.0) g/dL Thrombosis Risk Factor Assmnt - Choose All That Apply Any of the Below Risk Factors Present?: No Other Risk Factors: No Other congenital or acquired thrombophilia - If yes, enter type in comment: No Thrombosis Risk Factor Assessment Level: Very Low Risk Assessment and Plan (1) Essential hypertension Current Visit: Yes Status: Acute Code(s): I10 - ESSENTIAL (PRIMARY) HYPERTE NSION SNOMED Code(s): 05302785 (2) Alcohol withdrawal Current Visit: Yes Status: Acute Code(s): F10.239 - ALCOHOL DEPENDENCE WITH WITHDRAWAL, UNSPECIFIED SNOMED Code(s): 752450387 (3) Abdominal pain Current Visit: Yes Status: Acute Code(s): R10.9 - UNSPECIFIED ABDOMINAL PAIN SNOMED Code(s): 03344970 (4) Ileitis Current Visit: Yes Status: Acute Code(s): K52.9 - NONINFECTIVE GASTROENTERITIS AND COLITIS, UNSPECIFIED SNOMED Code(s): 21133412 (5) Meckel's diverticulitis Current Visit: Yes Status: Acute Code(s): Q43.0 - MECKEL'S DIVERTICULUM (DISPLACED) (HYPERTROPHIC) SNOMED Code(s): 62681055 Plan: 1. Abd pain. Infected meckel diverticulum. Start zosyn. Surgery consult. Pain control 2. Alcohol withdrawal. CIWA protocol, thiamine 3. HTN. Continue home lisinopril
[2019-08-04] MEDS ORDERED: cloNIDine HCL 0.1 MG TAB PO STA (23:49)
[2019-08-05 05:55] VITALS: BP 150/90; PULSE 73; RESP 16; TEMP 98.2
[2019-08-05 07:27] LABS: Basophils % (A) 1 %; Eosinophils # (A) 0.1 k/uL (0-0.7); Eosinophils % (A) 2 %; HCT 46.1 % (39.0-53.0); HGB 15.5 gm/dL (13.0-17.5); Lymphocytes # (A) 1.2 k/uL (1.0-4.8); Lymphocytes % (A) 15 %; MCH 34.5 pg (25.0-35.0); MCHC 33.6 g/dL (31.0-37.0); MCV 102.8 fL (80.0-100.0); Macrocytosis Slight; Mean Platelet Volume 7.9; Monocytes # (A) 0.5 k/uL (0-1.0); Monocytes % (A) 6 %; Neutrophils # (A) 6.1 k/uL (1.3-7.7); Neutrophils % (A) 76 %; Platelet Count 170 k/uL (150-450); RBC 4.48 m/uL (4.30-5.90); RDW 13.8 % (11.5-15.5); WBC 8.1 k/uL (3.8-10.6)
[2019-08-05 07:36] LABS: ALT 142 U/L (4-49); AST 273 U/L (17-59); African American GFR (CKD) >90 (>60 ml/min/1.73 sqM); Albumin 3.1 g/dL (3.5-5.0); Alkaline Phosphatase 273 U/L (38-126); Anion Gap 7 mmol/L; Blood Urea Nitrogen 10 mg/dL (9-20); Carbon Dioxide 27 mmol/L (22-30); Chloride 103 mmol/L (98-107); Glucose 89 mg/dL (74-99); Non-African American GFR(CKD) 85 (>60 ml/min/1.73 sqM); Sodium 137 mmol/L (137-145); Total Bilirubin 1.8 mg/dL (0.2-1.3)
[2019-08-05] MEDS: PANTOPRAZOLE 40 MG/10 ML VIAL IV SCH (08:02)
[2019-08-05] MEDS: THIAMINE 100 MG TAB PO SCH (08:02)
[2019-08-05] MEDS: PIPERACILLIN-TAZOBACTAM 3.375 GM in SODIUM CHLORIDE 0.9% 100 ML IVPB SCH (08:08)
--- NOTE | 2019-08-05 08:16 | US ---
EXAMINATION TYPE: US liver DATE OF EXAM: 08/05/2019 COMPARISON: CT 2 days earlier. CLINICAL HISTORY: abnormal liver enzymes. abdominal pain, elevated liver enzymes EXAM MEASUREMENTS: Liver Length: 19.5 cm Gallbladder Wall: 0.3 cm CBD: 0.3 cm Right Kidney: 11.6 x 4.4 x 6.0 cm Pancreas: Tail obscured by overlying bowel gas Liver: enlarged, attenuating Gallbladder: no evidence of stones Evidence for sonographic Vivas's sign: no CBD: wnl Right Kidney: no evidence of hydronephrosis Visualized pancreas unremarkable. Visualized liver heterogeneously hyperechoic corresponds to marked diffuse fatty infiltration on recent CT. Liver noted mildly enlarged. No surrounding ascites. No shad owing gallstones. Gallbladder fold or phrygian cap. No hydronephrosis right kidney. IMPRESSION: Redemonstration of mild hepatomegaly and marked fatty infiltration of liver.
--- NOTE | 2019-08-05 09:20 | P.PN ---
Subjective Progress Note Date: 08/05/19 CHIEF COMPLAINT: Right lower quadrant abdominal pain HISTORY OF PRESENT ILLNESS: The patient is a 38 year old male who presents with Meckel's diverticulitis. He reports no abdominal pain. Tolerating diet. Passing flatus. No evidence of alcohol withdrawal at this time. PHYSICAL EXAM: VITALS: Reviewed CONSTITUTIONAL: Well developed and in no acute distress. EYES: Conjuctivae without sclera icterus. Pupils are equally round and reactive to light. Extraocular movements grossly intact. HEAD, EARS, NOSE, THROAT: Moist buccal mucosa. Head is atraumatic, normocephalic. Hears conversational speech. No nasal drainage. NECK: No JV distention. No thyroidomegaly. RESPIRATORY: Non-labored respirations and equal bilateral excursions. No gross wheezes. CARDIOVASCULAR: Regular rate and rhythm. Extremities without moderate edema. ABDOMEN: No peritonitis. Nontender. MUSCULOSKELETAL: Range of motion bilateral upper extremities within normal limits. SKIN: Well perfused NEUROLOGIC: Cranial nerves II through XII grossly intact. No focal or lateralizing signs. PSYCH: Appropriate affect. Alert and oriented to person, place and time. Displays appropriate insight. CLINCAL LABS: Reviewed. WBC normal. C-reactive protein under 15. Liver enzymes improving. IMAGING: Independently ultrasound and liver independently reviewed demonstrating no gallstones. Hepatomegaly confirmed. RADIOLOGY: Report reviewed with 8 cm inflammation of the ileum ASSESSMENT: 1. Abnormal computed tomography scan 2. Right lower uadrant abdominal pain 3. Meckel's diverticulitis 4. Chronic alcohol abuse 5. Chronic tobacco abuse 6. Leukocytosis 7. Dehydration secondary to alcohol abuse PLAN: 1. Patient is stable for discharge. 2. Outpatient management will include elective resection of Meckel's diverticulum 3. Recommend outpatient antibiotics for another 5 days. 4. Follow-up as outpatient via telehealth Objective - Vital Signs Vital signs: Vital Signs Temp 98.2 F 08/05/19 05:54 Pulse 73 08/05/19 05:54 Resp 16 08/05/19 05:54 BP 150/90 08/05/19 05:54 Pulse Ox 100 08/05/19 05:54 Intake & Output 08/04/19 08/05/19 08/05/19 18:59 06:59 18:59 Intake Total 300 Balance 300 Intake: Oral 300 Other: # Voids 2 5 - Labs CBC & Chem 7: 08/05/19 06:28 08/05/19 06:28 Labs: Abnormal Lab Results - Last 24 Hours (Table) 08/04/19 08/04/19 08/04/19 Range/Units 09:14 09:14 09:14 MCV 102.1 H (80.0-100.0) fL MCH 35.8 H (25.0-35.0) pg Sodium 133 L (137-145) mmol/L Carbon Dioxide 19 L (22-30) mmol/L Total Bilirubin (0.2-1.3) mg/dL AST 368 H (17-59) U/L ALT 178 H (4-49) U/L Alkaline Phosphatase 233 H (38-126) U/L C-Reactive Protein 13.5 H (<10.0) mg/L Total Protein (6.3-8.2) g/dL Albumin 3.3 L (3.5-5.0) g/dL 08/05/19 08/05/19 Range/Units 06:28 06:28 MCV 102.8 H (80.0-100.0) fL MCH (25.0-35.0) pg Sodium (137-145) mmol/L Carbon Dioxide (22-30) mmol/L Total Bilirubin 1.8 H (0.2-1.3) mg/dL AST 273 H (17-59) U/L ALT 142 H (4-49) U/L Alkaline Phosphatase 273 H (38-126) U/L C-Reactive Protein (<10.0) mg/L Total Protein 6.0 L (6.3-8.2) g/dL Albumin 3.1 L (3.5-5.0) g/dL Assessment and Plan (1) Alcohol intoxication Current Visit: Yes Status: Acute Code(s): F10.929 - ALCOHOL USE, UNSPECIFIED WITH INTOXICATION, UNSPECIFIED SNOMED Code(s): 99491044 (2) Tobacco abuse Current Visit: Yes Status: Acute Code(s): Z72.0 - TOBACCO USE SNOMED Code(s): 751368298 (3) Alcohol abuse Current Visit: Yes Status: Acute Code(s): F10.10 - ALCOHOL ABUSE, UNCOMPLICATED SNOMED Code(s): 41650952 (4) Dehydration Current Visit: Yes Status: Acute Code(s): E86.0 - DEHYDRATION SNOMED Code(s): 27945753 (5) Leukocytosis Current Visit: Yes Status: Acute Code(s): D72.829 - ELEVATED WHITE BLOOD CELL COUNT, UNSPECIFIED SNOMED Code(s): 947257037 (6) Ileitis Current Visit: Yes Status: Acute Code(s): K52.9 - NONINFECTIVE GASTROENTERI TIS AND COLITIS, UNSPECIFIED SNOMED Code(s): 90261013 (7) Meckel's diverticulitis Current Visit: Yes Status: Acute Code(s): Q43.0 - MECKEL'S DIVERTICULUM (DISPLACED) (HYPERTROPHIC) SNOMED Code(s): 80725345 (8) Transaminitis Current Visit: Yes Status: Acute Code(s): R74.0 - NONSPEC ELEV OF LEVELS OF TRANSAMNS & LACTIC ACID DEHYDRGNSE SNOMED Code(s): 236419720
--- NOTE | 2019-08-05 10:07 | P.DS ---
Providers Date of admission: 08/03/19 20:04 Expected date of discharge: 08/05/19 Attending physician: Geovanni Muhammad MD Consults: 08/03/19 20:10 Consult Physician Stat Consulting Provider: Sheri Cain Consult Reason/Comments: Inflammatory ileitis, possible meckel's diverticulitis Do you want consulting provider notified?: Already Contacted Primary care physician: Lucrecia Aguirre [facility] Course: Final Diagnoses: (1) Essential hypertension Current Visit: Yes Status: Acute Code(s): I10 - ESSENTIAL (PRIMARY) HYPERTENSION SNOMED Code(s): 22102019 (2) Alcohol withdrawal Current Visit: Yes Status: Acute Code(s): F10.239 - ALCOHOL DEPENDENCE WITH WITHDRAWAL, UNSPECIFIED SNOMED Code(s): 315517258 (3) Abdominal pain Current Visit: Yes Status: Acute Code(s): R10.9 - UNSPECIFIED ABDOMINAL PAIN SNOMED Code(s): 87175182 (4) Ileitis Current Visit: Yes Status: Acute Code(s): K52.9 - NONINFECTIVE GASTROENTERITIS AND COLITIS, UNSPECIFIED SNOMED Code(s): 17103054 (5) Meckel's diverticulitis Current Visit: Yes Status: Acute Code(s): Q43.0 - MECKEL'S DIVERTICULUM (DISPLACED) (HYPERTROPHIC) SNOMED Code(s): 50215643 Hospital course: Alexey Harkins is a 38 year old male with PMH of HTN who was sent to the ED after complaining of 1 day history of abdominal pain and chills. He reports being in doors and playing with his 5-year-old and 13-year-old children including wrestling. He reported the pain felt more like a muscular ache along the right abdominal wall. No prior episodes. No nausea and vomiting. He also confirms daily alcohol use. He also reports pre-existing history of liver disease where less than 2 weeks ago he had additional blood work performed at his primary care office. In the ED he underwent CT scan which did show a 1.6 cm nodule as well as 8 cm region of inflammation in the ileum which is suspected to represent infected meckels diverticulum. Labs significant for WBC 12k, chronically elevated LFTs, serum alcohol 298. He was started on zosyn and reports significant improvement in his abdominal pain today. Evaluated by surgery, maintained on IV antibiotics as well as CIWA protocol. Significant clinical improvement. Cleared by surgery for discharge. Patient is being discharged home in a stable condition with guarded prognosis. Further antihypertensive adjustment outpatient next week with PCP. The impression and plan of care has been dictated as directed. : I performed a history and examination of this patient, discussed the same with the dictator. I agree with the dictator's note ,documented as a scribe. Any additional findings or plans will be noted. Patient Condition at Discharge: Stable Plan - Discharge Summary New Discharge Prescriptions: New Amoxicillin/Potassium Clav [Augmentin 875-125 Tablet] 1 tab PO Q12HR 3 Days #10 tab Folic Acid 1 mg PO DAILY #30 tablet Pantoprazole Sodium [Protonix] 40 mg PO DAILY #30 tablet. Thiamine [Vitamin B-1] 100 mg PO DAILY #30 tab Continue Lisinopril [Zestril] 10 mg PO HS Escitalopram [Lexapro] 20 mg PO HS Discharge Medication List Escitalopram [Lexapro] 20 mg PO HS 08/03/19 [History] Lisinopril [Zestril] 10 mg PO HS 08/03/19 [History] Amoxicillin/Potassium Clav [Augmentin 875-125 Tablet] 1 tab PO Q12HR 3 Days #10 tab 08/05/19 [Rx] Folic Acid 1 mg PO DAILY #30 tablet 08/05/19 [Rx] Pantoprazole Sodium [Protonix] 40 mg PO DAILY #30 tablet. 08/05/19 [Rx] Thiamine [Vitamin B-1] 100 mg PO DAILY #30 tab 08/05/19 [Rx] Follow up Appointment(s)/Referral(s): Sheri Cain MD [STAFF PHYSICIAN] - 08/09/19 (Telehealth) Lucrecia Aguirre DO [Primary Care Provider] - 3 Days Ambulatory/Diagnostic Orders: Complete Blood Count w/diff [LAB.AMB] Time Frame: 3 Days, Location: None Selected Patient Instructions/Handouts: Diverticulitis (DC) Activity/Diet/Wound Care/Special Instructions: Alcohol withdrawal, hypertension with further antihypertensive med regimen adjustment with PCP next week
== END 2019-08-05 10:57 | disposition home or self-care (01) | DRG 381 ==
LOC: EC 17:22 → 6NMEDSUR 20:04
PROVIDERS: ADMIT Family Medicine; ATTEND Family Medicine
DX: Q43.0 Meckel's diverticulum (displaced) (hypertrophic) (principal); F10.239 Alcohol dependence with withdrawal, unspecified; E86.0 Dehydration; F17.200 Nicotine dependence, unspecified, uncomplicated; I10 Essential (primary) hypertension; Y90.8 Blood alcohol level of 240 mg/100 ml or more; Z80.3 Family history of malignant neoplasm of breast; Z82.49 Family history of ischemic heart disease and other diseases of the circulatory system; K76.9 Liver disease, unspecified
CPT/HCPCS: 36415; 74177; 76705; 80053; 80320; 81003; 82150; 83605; 83690; 83735; 85025; 85610; 85730; 86140; 96361; 96365; 96375; 99285

== ENCOUNTER → 2019-09-21 | Outpatient (CLI) | payer BC ==
[2019-09-21 11:23] LABS: Anisocytosis Moderate; MCHC 33.5 g/dL (31.0-37.0); Macrocytosis Marked; Mean Platelet Volume 10.1; Platelet Count 303 k/uL (150-450); RBC 2.55 m/uL (4.30-5.90); RDW 21.4 % (11.5-15.5); WBC 8.5 k/uL (3.8-10.6)
[2019-09-21 11:27] LABS: INR 1.1 (<1.2); Partial Thromboplastin Time 27.7 sec (22.0-30.0)
[2019-09-21 11:33] LABS: HGB 9.7 gm/dL (13.0-17.5); MCV 113.7 fL (80.0-100.0)
[2019-09-21 12:38] LABS: Eosinophils # (M) 0.26 k/uL (0-0.7); Lymphocytes # (M) 1.28 k/uL (1.0-4.8); Metamyelocytes # (M) 0.17 k/uL (0); Metamyelocytes % 2 %; Monocytes # (M) 0.51 k/uL (0-1.0); Myelocytes # (M) 0.09 k/uL (0); Myelocytes % 1 %; Neutrophils # (M) 6.38 k/uL (1.3-7.7); Neutrophils % (M) 75 %; Nucleated Red Blood Cells 0 /100 WBC (0-0); Total Cells Counted 200
[2019-09-21 12:39] LABS: Polychromasia Present
[2019-09-21 16:45] LABS: ALT 176 U/L (10-49); AST 491 U/L (14-35); African American GFR (CKD) 124.3 (60.0-200.0); Albumin/Globulin Ratio 1.03 (1.60-3.17); Alkaline Phosphatase 1210 U/L (41-126); Blood Urea Nitrogen <5.0 mg/dL (9.0-27.0); Carbon Dioxide 26.7 mmol/L (21.6-31.8); Chloride 96 mmol/L (96-109); Glucose 99 mg/dL (70-110); Non-African American GFR(CKD) 107.2 (60.0-200.0); Potassium 4.4 mmol/L (3.5-5.5); Sodium 135 mmol/L (135-145); Total Protein 6.1 g/dL (6.2-8.2)
--- NOTE | 2019-09-21 16:59 | P.PN ---
Progress Note - Text Progress Note Date: 09/21/19 Notify by lap regarding critical results. Total bilirubin over 19. Patient immediately contacted. Voicemail obtained. Patient notified to go to the nearest emergency room for severe worsening liver enzymes including total bilirubin levels. Patient does have an appointment to see intranet developer tomorrow as well. Voicemail message left for patient to go to the emergency room immediately secondary to abnormal blood work.
--- NOTE | 2019-09-21 17:19 | P.PN ---
Progress Note - Text Progress Note Date: 09/21/19 Patient called back. I notified him the severity of his lab draw. Will likely need admission for symptomatic jaundice. Additionally, patient advised to go to emergency room. I personally spoke to emergency room Dr. Posadas regarding the patient's general medical care and past medical history.
[2019-09-21 18:16] LABS: Hepatitis A Antibody IgM Non-Reactive (Non-Reactive); Hepatitis B Core IgM Non-Reactive (Non-Reactive); Hepatitis B Surface Antigen Non-Reactive (Non-Reactive); Hepatitis C IgG Antibody Non-Reactive (Non-Reactive)
[2019-09-22 07:40] LABS: Total Bilirubin 19.4 mg/dL (0.3-1.2)
== END | disposition home or self-care (01) ==
LOC: LABWHC1 08:40
PROVIDERS: ATTEND Surgery Plastic and Reconstructive Surgery
DX: R17 Unspecified jaundice (principal)
CPT/HCPCS: 36415; 80053; 80074; 85025; 85610; 85730

== ENCOUNTER 2019-09-22 09:35 | Inpatient (IN) | payer BC ==
[2019-09-22] MEDS ORDERED: SODIUM CHLORIDE 0.9% 500 ML 500 ML IV STA (10:04)
--- NOTE | 2019-09-22 10:14 | ED ---
Recheck HPI - General Chief Complaint: Recheck/Abnormal Lab/Rx Stated Complaint: liver problems Time Seen by Provider: 09/22/19 10:03 Source: patient Mode of arrival: ambulatory Limitations: no limitations - History of Present Illness Initial Comments: Patient is a 38-year-old male with history of alcohol abuse presenting to emergency Department with a chief complaint of abnormal labs. Patient states 2 days ago he saw Dr. Majano for diverticulitis. States the patient appeared yellow so she obtain some laboratory work. Patient states she contacted him last at regarding elevated hepatic enzymes and advised him to come to emergency department for further evaluation and possible admission with a GI consult. Patient states she drinks about a fifth of vodka daily for the past few years. States the yellow hue started about 2 weeks ago and has gradually increased. He does report one episode of nonbilious, nonbloody vomiting. Denies any diarrhea. Denies any exposure to hepatitis. No history of mono. - Related Data Home Medications Medication Instructions Recorded Confirmed Escitalopram [Lexapro] 20 mg PO HS 08/03/19 08/03/19 Lisinopril [Zestril] 10 mg PO HS 08/03/19 08/03/19 Previous Rx's Medication Instructions Recorded Amoxicillin/Potassium Clav 1 tab PO Q12HR 3 Days #10 tab 08/05/19 [Augmentin 875-125 Tablet] Folic Acid 1 mg PO DAILY #30 tablet 08/05/19 Pantoprazole Sodium [Protonix] 40 mg PO DAILY #30 tablet. 08/05/19 Thiamine [Vitamin B-1] 100 mg PO DAILY #30 tab 08/05/19 Allergies Allergy/AdvReac Type Severity Reaction Status Date / Time No Known Allergies Allergy Verified 09/22/19 09:50 Review of Systems ROS Statement: Those systems with pertinent positive or pertinent negative responses have been documented in the HPI. ROS Other: All systems not noted in ROS Statement are negative. Past Medical History Past Medical History: No Reported History Additional Past Medical History / Comment(s): diverticulits History of Any Multi-Drug Resistant Organisms: None Reported Past Surgical History: No Surgical Hx Reported Additional Past Surgical History / Comment(s): [place]rawberry teeth Past Anesthesia/Blood Transfusion Reactions: No Reported Reaction Past Psychological History: No Psychological Hx Reported Smoking Status: Current every day smoker Past Alcohol Use History: Daily, Heavy Past Drug Use History: None Reported - Past Family History Father Family Medical History: CVA/TIA, Myocardial Infarction ([place]) Mother Family Medical History: Cancer Additional Family Medical History / Comment(s): Breast cancer General Exam Limitations: no limitations General appearance: alert, in no apparent distress Head exam: Present: atraumatic, normocephalic, normal inspection Eye exam: Present: normal appearance, PERRL, EOMI, scleral icterus Pupils: Present: normal accommodation ENT exam: Present: normal exam, normal oropharynx, mucous membranes moist Neck exam: Present: normal inspection, full ROM Respiratory exam: Present: normal lung sounds bilaterally. Absent: respiratory distress, wheezes, rales Cardiovascular Exam: Present: regular rate, normal rhythm, normal heart sounds GI/Abdominal exam: Present: soft, tenderness (There mild epigastric tenderness). Absent: distended Extremities exam: Present: normal inspection, full ROM Back exam: Present: normal inspection, full ROM Neurological exam: Present: alert, oriented X3 Psychiatric exam: Present: normal affect, normal mood Skin exam: Present: warm, dry, intact, normal color, other (Jaundiced) Course Vital Signs 09/22/19 09:47 Temperature 98.8 F Pulse Rate 94 Respiratory 18 Rate Blood Pressure 139/92 O2 Sat by Pulse 100 Oximetry Medical Decision Making - Medical Decision Making Patient is a 38-year-old male with history of alcohol abuse presenting to the emergency department with a chief complaint of abnormal labs. Patient had been evaluated by Dr. Majano 2 days ago and labs drawn yesterday. Patient had elevated liver enzymes and bilirubin. On reevaluation his bilirubin is 16.2 which is improved compared to yesterday. Patient still has elevated enzymes. Patient had an acute hepatitis panel performed yesterday. I spoke with Dr. Pride who would like to admit the patient under medicine and have GI consult. Case discussed with Admitting physician is Dr Muhammad General surgery on consult GI on consult - Lab Data Result diagrams: 09/22/19 10:46 Lab Results 09/22/19 09/22/19 09/22/19 Range/Units 10:29 10:46 10:46 PT (9.0-12.0) sec INR (<1.2) APTT (22.0-30.0) sec Sodium 135 L (137-145) mmol/L Potassium 3.9 (3.5-5.1) mmol/L Chloride 99 (98-107) mmol/L Carbon Dioxide 23 (22-30) mmol/L Anion Gap 13 mmol/L BUN <2 L (9-20) mg/dL Creatinine 0.81 (0.66-1.25) mg/dL Est GFR (CKD-EPI)AfAm >90 (>60 ml/min/1.73 sqM) Est GFR (CKD-EPI)NonAf >90 (>60 ml/min/1.73 sqM) Glucose 114 H (74-99) mg/dL Calcium 8.9 (8.4-10.2) mg/dL Total Bilirubin 16.2 H* (0.2-1.3) mg/dL AST 565 H (17-59) U/L ALT 153 H (4-49) U/L Alkaline Phosphatase 1197 H (38-126) U/L Ammonia 46 H (<30) umol/L Total Protein 7.1 (6.3-8.2) g/dL Albumin 3.4 L (3.5-5.0) g/dL Amylase 90 (30-110) U/L Lipase 115 (23-300) U/L Urine Color Dark Brown Urine Appearance Clear (Clear) Urine pH 6.0 (5.0-8.0) Ur Specific [place] 1.018 (1.001-1.035) Urine Protein Trace H (Negative) Urine Glucose (UA) Negative (Negative) Urine Ketones Negative (Negative) Urine Blood Negative (Negative) Urine Nitrite Negative (Negative) Urine Bilirubin 3+ H (Negative) Urine Urobilinogen >12.0 (<2.0) mg/dL Ur Leukocyte Esterase Negative (Negative) 09/22/19 Range/Units 10:46 PT 10.7 (9.0-12.0) sec INR 1.0 (<1.2) APTT 27.1 (22.0-30.0) sec Sodium (137-145) mmol/L Potassium (3.5-5.1) mmol/L Chloride (98-107) mmol/L Carbon Dioxide (22-30) mmol/L Anion Gap mmol/L BUN (9-20) mg/dL Creatinine (0.66-1.25) mg/dL Est GFR (CKD-EPI)AfAm (>60 ml/min/1.73 sqM) Est GFR (CKD-EPI)NonAf (>60 ml/min/1.73 sqM) Glucose (74-99) mg/dL Calcium (8.4-10.2) mg/dL Total Bilirubin (0.2-1.3) mg/dL AST (17-59) U/L ALT (4-49) U/L Alkaline Phosphatase (38-126) U/L Ammonia (<30) umol/L Total Protein (6.3-8.2) g/dL Albumin (3.5-5.0) g/dL Amylase (30-110) U/L Lipase (23-300) U/L Urine Color Urine Appearance (Clear) Urine pH (5.0-8.0) Ur Specific [place] (1.001-1.035) Urine Protein (Negative) Urine Glucose (UA) (Negative) Urine Ketones (Negative) Urine Blood (Negative) Urine Nitrite (Negative) Urine Bilirubin (Negative) Urine Urobilinogen (<2.0) mg/dL Ur Leukocyte Esterase (Negative) Disposition Clinical Impression: Jaundice, Transaminitis, Hyperbilirubinemia Disposition: ADMITTED IP TO THIS HOSP Condition: Stable Additional Instructions: She will be admitted Is patient prescribed a controlled substance at d/c from ED?: No Referrals: Lucrecia Aguirre DO [Primary Care Provider] - 1-2 days Time of Disposition: 12:05
[2019-09-22 11:10] LABS: ALT 153 U/L (4-49); AST 565 U/L (17-59); African American GFR (CKD) >90 (>60 ml/min/1.73 sqM); Albumin 3.4 g/dL (3.5-5.0); Alkaline Phosphatase 1197 U/L (38-126); Amylase 90 U/L (30-110); Anion Gap 13 mmol/L; Blood Urea Nitrogen <2 mg/dL (9-20); Calcium 8.9 mg/dL (8.4-10.2); Carbon Dioxide 23 mmol/L (22-30); Chloride 99 mmol/L (98-107); Glucose 114 mg/dL (74-99); Non-African American GFR(CKD) >90 (>60 ml/min/1.73 sqM); Potassium 3.9 mmol/L (3.5-5.1); Sodium 135 mmol/L (137-145); Total Protein 7.1 g/dL (6.3-8.2)
[2019-09-22 11:10] LABS: Appearance,Urine Clear (Clear); Bilirubin,Urine 3+ (Negative); Blood,Urine Negative (Negative); Color,Urine Dark Brown; Glucose,Urine (UA) Negative (Negative); Ketones,Urine Negative (Negative); Leukocyte Esterase,Urine Negative (Negative); Nitrite,Urine Negative (Negative); Protein,Urine Trace (Negative); Specific Gravity,Urine 1.018 (1.001-1.035); Urobilinogen,Urine >12.0 mg/dL (<2.0)
[2019-09-22 11:16] LABS: Total Bilirubin 16.2 mg/dL (0.2-1.3)
[2019-09-22 11:42] LABS: Partial Thromboplastin Time 27.1 sec (22.0-30.0); Prothrombin Time 10.7 sec (9.0-12.0)
[2019-09-22] MEDS ORDERED: HYDROmorphone 0.5 MG/0.5 ML SYRINGE IVP PRN (12:00)
[2019-09-22] MEDS ORDERED: MORPHINE SULFATE 4 MG/ML SYRINGE IV PRN (12:00)
[2019-09-22] MEDS ORDERED: NALOXONE 0.4 MG/ML 1 ML VIAL IV PRN (12:00)
[2019-09-22] MEDS ORDERED: ALPRAZolam 0.25 MG TAB PO PRN (12:00)
[2019-09-22 12:06] LABS: Anisocytosis Moderate; HCT 29.1 % (39.0-53.0); HGB 9.6 gm/dL (13.0-17.5); MCH 37.2 pg (25.0-35.0); MCHC 32.9 g/dL (31.0-37.0); Macrocytosis Marked; Platelet Count 256 k/uL (150-450); RBC 2.58 m/uL (4.30-5.90); RDW 21.1 % (11.5-15.5); WBC 7.7 k/uL (3.8-10.6)
[2019-09-22] MEDS: SODIUM CHLORIDE 0.9% 1,000 ML IV SCH ×2 (12:17→23:04)
[2019-09-22 12:30] LABS: Eosinophils # (M) 0.08 k/uL (0-0.7); Lymphocytes # (M) 0.54 k/uL (1.0-4.8); Metamyelocytes # (M) 0.23 k/uL (0); Metamyelocytes % 3 %; Monocytes # (M) 0.23 k/uL (0-1.0); Myelocytes # (M) 0.15 k/uL (0); Myelocytes % 2 %; Neutrophils # (M) 6.55 k/uL (1.3-7.7); Neutrophils % (M) 85 %; Nucleated Red Blood Cells 0 /100 WBC (0-0); Poikilocytosis (M) Present; Polychromasia Present; Total Cells Counted 200
[2019-09-22] MEDS ORDERED: LORazepam 2 MG/ML INJ IV PRN ×3 (13:46)
[2019-09-22] MEDS ORDERED: THIAMINE 100 MG/ML 2 ML VIAL IM STA (13:46)
[2019-09-22] MEDS ORDERED: cloNIDine HCL 0.1 MG TAB PO STA (16:14)
[2019-09-22] MEDS: THIAMINE 100 MG TAB PO SCH (16:40)
--- NOTE | 2019-09-22 20:33 | CONS ---
CONSULTATION DATE OF DICTATION: 09/22/2019 REASON FOR CONSULTATION: Jaundice and elevated LFTs. HISTORY OF PRESENT ILLNESS: The patient is a 38-year-old pleasant white male with history of heavy alcohol abuse for the last 20 years' duration. He came into the emergency room complaining of jaundice and abnormal labs. He was admitted to the hospital 6 weeks ago with acute Meckel's diverticulitis and was seen by Dr. Cain during the hospitalization. He went to see her yesterday on an outpatient basis and apparently was noted to have significant yellowish discoloration of his eyes, and he was advised to have outpatient labs done. He was noted to have jaundice and hence he was advised to go to the emergency room and subsequently was admitted to the hospital for further evaluation. Patient states that he has been drinking heavily for the last 20 years. He usually drinks a pint of alcohol every day. He has not been feeling well for the last 2 weeks with vague nausea, some abdominal discomfort but no abdominal pain. He denies any emesis. He denies any recent weight loss. No fever, chills or night sweats. After his recent hospitalization for Meckel's diverticulitis he was treated with antibiotics for 5 days with Augmentin. He denies taking any other new medications over the counter recently. HOME MEDICATIONS: His home medications include Protonix, lisinopril, folic acid and Lexapro. ALLERGIES: NONE. SOCIAL HISTORY: Heavy alcohol use, as mentioned above. Occasional smoking. REVIEW OF SYSTEMS: CARDIOPULMONARY: No chest pain or shortness of breath. GENITOURINARY: No dysuria or hematuria. MUSCULOSKELETAL: Unremarkable. SKIN: Unremarkable. ENDOCRINE: Unremarkable. PSYCHIATRIC: Unremarkable. NEUROLOGY: Unremarkable. ENT/VISION: Unremarkable. CONSTITUTIONAL: No recent weight loss. No fever, chills, night sweats. PHYSICAL EXAMINATION: He appears comfortable. No apparent distress. VITAL SIGNS: Stable. Blood pressure is 150/101, temperature 98, pulse rate 102. HEENT examination unremarkable. Conjunctivae pink. Sclerae deeply icteric. Oral cavity no lesions. NECK: No JVD or lymph node enlargement. CHEST: Clear to auscultation. HEART: Regular rate and rhythm. ABDOMEN: Soft. It was non-tender, non-distended. Liver edge was soft in consistency. EXTREMITIES: No pedal edema. SKIN: No rashes. NEUROLOGIC: Alert and oriented x3. No focal deficits. LABS: WBC 7.7, hemoglobin 9.6, MCV 113. Platelets 256. T-bilirubin is 16.2, AST 565, ALT 153, alkaline phosphatase 1197. BUN and creatinine are within normal limits. Amylase and lipase are normal. IMPRESSION: 1. This is a patient with history of heavy alcohol abuse for the last 20 years' duration, admitted to the hospital with painless jaundice, noted to have significant elevation of bilirubin as well as alkaline phosphatase with moderate elevation of serum transaminases. He is also noted to have macrocytic anemia and a biochemical picture consistent with alcoholic liver disease. But the significant elevation of alkaline phosphatase is unlikely with alcoholic liver disease alone. A component of medication-induced hepatitis, especially intrahepatic cholestasis, cannot be excluded. Of course we have to rule out possibility of extrahepatic biliary obstruction. Viral hepatitis also needs to be excluded. 2. Macrocytic anemia. 3. Mild elevation of ammonia level, but no evidence of hepatic encephalopathy. RECOMMENDATIONS: 1. Will obtain ultrasound of the abdomen. 2. Obtain hepatitis serologies for A, B and C as well as EBV and CMV hepatitis. 3. Repeat labs in the morning. 4. Repeat ammonia in the morning. 5. Abstinence from alcohol. 6. Will follow with you closely. Thank you for this consultation. MMODL / IJN: [id number] /
[2019-09-22] MEDS: LACTULOSE 20 GM/30 ML CUP PO SCH (21:15)
[2019-09-22] MEDS: LISINOPRIL 10 MG TAB PO SCH (21:15)
[2019-09-22] MEDS: ESCITALOPRAM 20 MG TAB PO SCH (21:15)
[2019-09-23 07:33] LABS: ALT 127 U/L (4-49); AST 371 U/L (17-59); African American GFR (CKD) >90 (>60 ml/min/1.73 sqM); Albumin 2.7 g/dL (3.5-5.0); Alkaline Phosphatase 920 U/L (38-126); Anion Gap 8 mmol/L; Blood Urea Nitrogen <2 mg/dL (9-20); Calcium 8.5 mg/dL (8.4-10.2); Carbon Dioxide 23 mmol/L (22-30); Chloride 106 mmol/L (98-107); Glucose 87 mg/dL (74-99); Non-African American GFR(CKD) >90 (>60 ml/min/1.73 sqM); Potassium 4.2 mmol/L (3.5-5.1); Sodium 137 mmol/L (137-145); Total Bilirubin 14.1 mg/dL (0.2-1.3); Total Protein 6.1 g/dL (6.3-8.2)
--- NOTE | 2019-09-23 07:33 | P.GSCN ---
History of Present Illness Consult date: 09/22/19 History of present illness: CHIEF COMPLAINT: Jaundice with elevated LFTs HISTORY OF PRESENT ILLNESS: The patient is a 38 year old male who presented to the outpatient clinic 2 days ago with shawn jaundice. He was the evaluated for Meckel's diverticulectomy at that time. He reports heavy alcohol use at least a pint of beer daily including vodka daily. He is also chronic tobacco user. He reported intractable nausea and vomiting that preceded the event 3 weeks prior. He reports he is able to tolerate foods now. His previous generalized abdominal pain is resolved. No reports of fevers or chills. He was sent from the outpatient clinic to the lab for hepatitis panel and liver panel. Immediate results came back with total bilirubin of 19.1 including markedly elevated LFTs. He was sent to the emergency room for recheck and possible admission. He had a prior liver ultrasound 2 months ago which was unremarkable for biliary pathology. Repeat lab still demonstrates marked elevated total bilirubin L2 since his admission. He still reports heavy alcohol use. He reports dark urine including change in the color of his stools to light- colored and yellow eyes. PAST MEDICAL HISTORY: See list. PAST SURGICAL HISTORY: See list. MEDICATIONS: See list. ALLERGIES: See list. SOCIAL HISTORY: See list. FAMILY HISTORY: See list. REVIEW OF ORGAN SYSTEMS: CONSTITUTIONAL: No fevers or chills. No recent weight loss. EYES: Denies any trouble with vision. No glasses. HEENT: No difficulties with hearing. No nosebleeds. No difficulty swallowing. RESPIRATORY: Denies pneumonia. Denies any troubles with breathing or dyspnea on exertion. CARDIOVASCULAR: Denies any chest pain, palpitations, or recent heart attacks. GASTROINTESTINAL: Denies fatty food intolerance. Has change in bowel habits and gas bloat. GENITOURINARY: Denies any blood in urine or increased urinary frequency. NEUROLOGICAL: Denies any numbness or tingling along the distal extremities. No seizure disorders or headaches. MUSCULOSKELETAL: Has back pain, stiffness or joint arthritis. SKIN: No current skin cancer. No rash. PSYCHIATRIC: Denies current depression or suicidal thoughts. ENDOCRINE: Denies current thyroid disorders. Denies any blood sugar glucose intolerance. HEME/LYMPHATIC: Denies any lumps and bumps around the neck. No recent deep venous thrombosis. ALLERGY/IMMUNOLOGY: No immunoglobulin therapy. No immune deficiencies. BREAST: Denies current breast lumps, pain or nipple discharge. PHYSICAL EXAM: VITALS: Reviewed CONSTITUTIONAL: Well developed and in no acute distress. EYES: Conjuctivae with sclera icterus. Pupils are equally round and reactive to light. Extraocular movements grossly intact. HEAD, EARS, NOSE, THROAT: Moist buccal mucosa. Head is atraumatic, normocephalic. Hears conversational speech. No nasal drainage. NECK: No JV distention. No thyroidomegaly. RESPIRATORY: Non-labored respirations and equal bilateral excursions. No gross wheezes. CARDIOVASCULAR: Regular rate and rhythm. Extremities without moderate edema. ABDOMEN: Non-distended. No peritonitis. Minimal tenderness right lower quadrant. MUSCULOSKELETAL: Range of motion bilateral upper extremities within normal limits. SKIN: Well perfused NEUROLOGIC: Cranial nerves II through XII grossly intact. No focal or lateralizing signs. PSYCH: Appropriate affect. Alert and oriented to person, place and time. Displays appropriate insight. CLINCAL LABS: Reviewed. Liver enzymes moderately elevated, total bilirubin 19.1 prior. ASSESSMENT: 1. Abnormal LFTs with hyperbilirubinemia 2. And jaundice 3. Meckel's diverticulitis 4. Chronic alcohol abuse 5. Chronic tobacco abuse PLAN: 1. Recommend GI consultation due to severe jaundice including elevated LFTs and total bilirubin levels. 2. May need MRI of the abdomen to further elucidate pancreatic versus liver pathology 3. Recommend vitamin B1, thiamine for heavy alcohol use 4. IV fluid hydration 5. Alcohol withdrawal protocol advised 6. We'll continue to follow Thank you for this kind consultation. Past Medical History Past Medical History: No Reported History Additional Past Medical History / Comment(s): diverticulits, ETOH History of Any Multi-Drug Resistant Organisms: None Reported Past Surgical History: No Surgical Hx Reported Additional Past Surgical History / Comment(s): [place] teeth Past Anesthesia/Blood Transfusion Reactions: No Reported Reaction Past Psychological History: No Psychological Hx Reported Smoking Status: Current every day smoker Past Alcohol Use History: Daily, Heavy Past Drug Use History: None Reported - Past Family History Father Family Medical History: CVA/TIA, Myocardial Infarction ([place]) Mother Family Medical History: Cancer Additional Family Medical History / Comment(s): Breast cancer Medications and Allergies Home Medications Medication Instructions Recorded Confirmed Type Escitalopram [Lexapro] 20 mg PO HS 08/03/19 09/22/19 History Lisinopril [Zestril] 10 mg PO HS 08/03/19 09/22/19 History Folic Acid 1 mg PO DAILY #30 tablet 08/05/19 09/22/19 Rx Pantoprazole Sodium [Protonix] 40 mg PO DAILY #30 tablet. 08/05/19 09/22/19 Rx Allergies Allergy/AdvReac Type Severity Reaction Status Date / Time No Known Allergies Allergy Verified 09/22/19 16:00 Surgical - Exam Vital Signs Temp Pulse Resp BP Pulse Ox 98.8 F 94 18 139/92 100 09/22/19 09:47 09/22/19 09:47 09/22/19 09:47 09/22/19 09:47 09/22/19 09:47 Results - Labs 09/22/19 10:46 09/22/19 10:46 Abnormal Lab Results - Last 24 Hours (Table) 09/22/19 09/22/19 09/22/19 Range/Units 10:29 10:46 10:46 RBC 2.58 L (4.30-5.90) m/uL Hgb 9.6 L (13.0-17.5) gm/dL Hct 29.1 L (39.0-53.0) % MCV 113.0 H (80.0-100.0) fL MCH 37.2 H (25.0-35.0) pg RDW 21.1 H (11.5-15.5) % Lymphocytes # (Manual) 0.54 L (1.0-4.8) k/uL Metamyelocytes # (Man) 0.23 H (0) k/uL Myelocytes # (Manual) 0.15 H (0) k/uL Macrocytosis Marked A Sodium 135 L (137-145) mmol/L BUN <2 L (9-20) mg/dL Glucose 114 H (74-99) mg/dL Total Bilirubin 16.2 H* (0.2-1.3) mg/dL AST 565 H (17-59) U/L ALT 153 H (4-49) U/L Alkaline Phosphatase 1197 H (38-126) U/L Ammonia (<30) umol/L Albumin 3.4 L (3.5-5.0) g/dL Urine Protein Trace H (Negative) Urine Bilirubin 3+ H (Negative) 09/22/19 Range/Units 10:46 RBC (4.30-5.90) m/uL Hgb (13.0-17.5) gm/dL Hct (39.0-53.0) % MCV (80.0-100.0) fL MCH (25.0-35.0) pg RDW (11.5-15.5) % Lymphocytes # (Manual) (1.0-4.8) k/uL Metamyelocytes # (Man) (0) k/uL Myelocytes # (Manual) (0) k/uL Macrocytosis Sodium (137-145) mmol/L BUN (9-20) mg/dL Glucose (74-99) mg/dL Total Bilirubin (0.2-1.3) mg/dL AST (17-59) U/L ALT (4-49) U/L Alkaline Phosphatase (38-126) U/L Ammonia 46 H (<30) umol/L Albumin (3.5-5.0) g/dL Urine Protein (Negative) Urine Bilirubin (Negative) Diabetes panel 09/22/19 Range/Units 10:46 Sodium 135 L (137-145) mmol/L Potassium 3.9 (3.5-5.1) mmol/L Chloride 99 (98-107) mmol/L Carbon Dioxide 23 (22-30) mmol/L BUN <2 L (9-20) mg/dL Creatinine 0.81 (0.66-1.25) mg/dL Glucose 114 H (74-99) mg/dL Calcium 8.9 (8.4-10.2) mg/dL AST 565 H (17-59) U/L ALT 153 H (4-49) U/L Alkaline Phosphatase 1197 H (38-126) U/L Total Protein 7.1 (6.3-8.2) g/dL Albumin 3.4 L (3.5-5.0) g/dL Calcium panel 09/22/19 Range/Units 10:46 Calcium 8.9 (8.4-10.2) mg/dL Albumin 3.4 L (3.5-5.0) g/dL Pituitary panel 09/22/19 Range/Units 10:46 Sodium 135 L (137-145) mmol/L Potassium 3.9 (3.5-5.1) mmol/L Chloride 99 (98-107) mmol/L Carbon Dioxide 23 (22-30) mmol/L BUN <2 L (9-20) mg/dL Creatinine 0.81 (0.66-1.25) mg/dL Glucose 114 H (74-99) mg/dL Calcium 8.9 (8.4-10.2) mg/dL Adrenal panel 09/22/19 Range/Units 10:46 Sodium 135 L (137-145) mmol/L Potassium 3.9 (3.5-5.1) mmol/L Chloride 99 (98-107) mmol/L Carbon Dioxide 23 (22-30) mmol/L BUN <2 L (9-20) mg/dL Creatinine 0.81 (0.66-1.25) mg/dL Glucose 114 H (74-99) mg/dL Calcium 8.9 (8.4-10.2) mg/dL Total Bilirubin 16.2 H* (0.2-1.3) mg/dL AST 565 H (17-59) U/L ALT 153 H (4-49) U/L Alkaline Phosphatase 1197 H (38-126) U/L Total Protein 7.1 (6.3-8.2) g/dL Albumin 3.4 L (3.5-5.0) g/dL Assessment and Plan (1) Meckels diverticulum Current Visit: Yes Status: Acute Code(s): Q43.0 - MECKEL'S DIVERTICULUM (DISPLACED) (HYPERTROPHIC) SNOMED Code(s): 18024906 (2) Hyperbilirubinemia Current Visit: Yes Status: Acute Code(s): E80.6 - OTHER DISORDERS OF BILIRUBIN METABOLISM SNOMED Code(s): 10633855 (3) Jaundice Current Visit: Yes Status: Acute Code(s): R17 - UNSPECIFIED JAUNDICE SNOMED Code(s): 43675565 (4) Transaminitis Current Visit: Yes Status: Acute Code(s): R74.0 - NONSPEC ELEV OF LEVELS OF TRANSAMNS & LACTIC ACID DEHYDRGNSE SNOMED Code(s): 414301233 (5) Alcohol abuse Current Visit: No Status: Acute Code(s): F10.10 - ALCOHOL ABUSE, UNCOMPLICATED SNOMED Code(s): 47945248 (6) Dehydration Current Visit: No Status: Acute Code(s): E86.0 - DEHYDRATION SNOMED Code(s): 62568271
[2019-09-23] MEDS: LACTULOSE 20 GM/30 ML CUP PO SCH ×2 (09:02→20:52)
[2019-09-23] MEDS: PANTOPRAZOLE 40 MG TABLET PO SCH (09:03)
[2019-09-23] MEDS: THIAMINE 100 MG TAB PO SCH ×2 (09:03→18:02)
--- NOTE | 2019-09-23 09:44 | US ---
EXAMINATION TYPE: US abdomen complete DATE OF EXAM: 09/23/2019 COMPARISON: Prior ultrasound 08/05/2019, CT 08/03/2019 CLINICAL HISTORY: jaundice. Jaundice EXAM MEASUREMENTS: Liver Length: 21 cm Gallbladder Wall: .3 cm CBD: .4 cm Spleen: 12.4 cm Right Kidney: 12.2 x 4.1 x 4.9 cm Left Kidney: 12.5 x 4.3 x 4.2 cm Pancreas: Obscured by bowel gas Liver: Increased attenuation, hepatomegaly. Gallbladder: Pericholecystic fluid seen and there is borderline gallbladder wall thickening Evidence for sonographic Vivas's sign: No CBD: wnl Spleen: wnl Right Kidney: wnl Left Kidney: wnl Upper IVC: Limited Abd Aorta: wnl There is no ascites. Kidneys show normal cortical medullary differentiation. IMPRESSION: Correlate for cholecystitis, hepatocellular disease, hepatic steatosis.
--- NOTE | 2019-09-23 11:27 | P.PN ---
<Birgit Mejía - Last Filed: 09/23/19 11:22> Subjective Progress Note Date: 09/23/19 CHIEF COMPLAINT: Jaundice with elevated LFTs HISTORY OF PRESENT ILLNESS: Patient examined at the bedside this morning with Dr. Cain. Patient states he is feeling well. He denies abdominal pain. Bilirubin 14.1. AST 371. ALT 127. Alkaline phosphatase 920. PHYSICAL EXAM: VITALS: Reviewed CONSTITUTIONAL: Well developed and in no acute distress. EYES: Conjuctivae with sclera icterus. Pupils are equally round and reactive to light. Extraocular movements grossly intact. HEAD, EARS, NOSE, THROAT: Moist buccal mucosa. Head is atraumatic, normocephalic. Hears conversational speech. No nasal drainage. NECK: No JV distention. No thyroidomegaly. RESPIRATORY: Non-labored respirations and equal bilateral excursions. No gross wheezes. CARDIOVASCULAR: Regular rate and rhythm. Extremities without moderate edema. ABDOMEN: Non-distended. No peritonitis. Nontender. MUSCULOSKELETAL: Range of motion bilateral upper extremities within normal limits. SKIN: Well perfused NEUROLOGIC: Cranial nerves II through XII grossly intact. No focal or lateralizing signs. PSYCH: Appropriate affect. Alert and oriented to person, place and time. Displays appropriate insight. ASSESSMENT: 1. Abnormal LFTs with hyperbilirubinemia 2. Jaundice 3. Meckel's diverticulitis 4. Chronic alcohol abuse 5. Chronic tobacco abuse PLAN: -Continue workup per GI service -Monitor labs -Check iron panel and vitamin b12 -No surgical intervention recommended Nurse practitioner note has been reviewed by physician. Signing provider agrees with the documented findings, assessment, and plan of care. Objective - Vital Signs Vital signs: Vital Signs Temp 98.4 F 09/23/19 04:36 Pulse 85 09/23/19 04:36 Resp 18 09/23/19 04:36 BP 134/73 09/23/19 04:36 Pulse Ox 98 09/23/19 04:36 Intake & Output 09/22/19 09/23/19 09/23/19 18:59 06:59 18:59 Weight 77.111 kg Other: Voiding Method Toilet # Voids 3 - Labs CBC & Chem 7: 09/22/19 10:46 09/23/19 06:45 Labs: Abnormal Lab Results - Last 24 Hours (Table) 09/22/19 09/23/19 Range/Units 10:46 06:45 RBC 2.58 L (4.30-5.90) m/uL Hgb 9.6 L (13.0-17.5) gm/dL Hct 29.1 L (39.0-53.0) % MCV 113.0 H (80.0-100.0) fL MCH 37.2 H (25.0-35.0) pg RDW 21.1 H (11.5-15.5) % Lymphocytes # (Manual) 0.54 L (1.0-4.8) k/uL Metamyelocytes # (Man) 0.23 H (0) k/uL Myelocytes # (Manual) 0.15 H (0) k/uL Macrocytosis Marked A BUN <2 L (9-20) mg/dL Total Bilirubin 14.1 H (0.2-1.3) mg/dL AST 371 H (17-59) U/L ALT 127 H (4-49) U/L Alkaline Phosphatase 920 H (38-126) U/L Total Protein 6.1 L (6.3-8.2) g/dL Albumin 2.7 L (3.5-5.0) g/dL <Sheri Cain N - Last Filed: 09/24/19 12:30> Subjective Patient seen and evaluated with nurse practitioner. Agree with above. HISTORY OF PRESENT ILLNESS: The patient is a 38 year old male presented with acute jaundice including history of heavy alcohol use. Denies any abdominal p ain. Liver enzymes slowly improved. Hepatitis panel negative. Patient waiting further recommendations from senior technical business analyst. REVIEW OF ORGAN SYSTEMS: No fevers or chills. No productive sputum. No chest pain. PHYSICAL EXAM: VITALS: Reviewed CONSTITUTIONAL: Well developed and in no acute distress. EYES: Conjuctivae with sclera icterus. Pupils are equally round and reactive to light. Extraocular movements grossly intact. HEAD, EARS, NOSE, THROAT: Moist buccal mucosa. Head is atraumatic, normocephalic. Hears conversational speech. No nasal drainage. NECK: No JV distention. No thyroidomegaly. RESPIRATORY: Non-labored respirations and equal bilateral excursions. No gross wheezes. CARDIOVASCULAR: Regular rate and rhythm. Extremities without moderate edema. ABDOMEN: Non-distended. No peritonitis. MUSCULOSKELETAL: No clubbing cyanosis or edema. SKIN: Well perfused. Jaundiced NEUROLOGIC: Cranial nerves II through XII grossly intact. No focal or lateralizing signs. PSYCH: Appropriate affect. Alert and oriented to person, place and time. Displays appropriate insight. CLINCAL LABS: Reviewed. Hemoglobin 9.6 and low. Liver enzymes moderately elevated, total bilirubin 19.4 prior now 14.1. AST improved from 565 to 371. ALT improved from 176-127. Alkaline phosphatase improved from 1210 to 920. STUDIES: Abdominal ultrasound independently reviewed demonstrating no evidence of gallstones. No evidence of biliary dilation. Mildly thickened gallbladder wall without Vivas sign. This is my independent interpretation. ASSESSMENT: 1. Abnormal LFTs with hyperbilirubinemia 2. Jaundice 3. Meckel's diverticulitis 4. Chronic alcohol abuse 5. Chronic tobacco abuse 6. Anemia PLAN: 1. He has anemia hemoglobin less than 10.0. Recommend iron panel and vitamin B12 study 2. He has history of Meckel's diverticulitis however recommend holding any surgery until current acute jaundice is further evaluated and resolved 3. Diet as tolerated 4. Pending additional recommendations by GI. 5. Although he wants to go home, recommend further studies by GI prior to discharge Objective - Vital Signs Vital signs: Vital Signs Temp 98.1 F 09/24/19 11:28 Pulse 79 09/24/19 11:28 Resp 16 09/24/19 11:28 BP 140/87 09/24/19 11:28 Pulse Ox 98 09/24/19 11:28 Intake & Output 09/23/19 09/24/19 09/24/19 18:59 06:59 18:59 Intake Total 450 675 Balance 450 675 Intake: Intake, IV Titration 450 675 Amount Sodium Chloride 0.9% 1, 450 675 000 ml @ 75 mls/hr IV . [id number] [facility] Rx#:[id number] Other: Voiding Method Toilet Toilet # Voids 1 - Labs CBC & Chem 7: 09/22/19 10:46 09/24/19 05:35 Labs: Abnormal Lab Results - Last 24 Hours (Table) 09/23/19 09/23/19 09/24/19 Range/Units 06:45 11:48 05:35 Retic Count 12.0 H (0.5-2.0) % Chloride 109 H (98-107) mmol/L Carbon Dioxide 21 L (22-30) mmol/L BUN 2 L (9-20) mg/dL TIBC 40 L (228-460) ug/dL % Saturation 330.00 H (15.00-50.00) Ferritin 5035.8 H (22.0-322.0) ng/mL Total Bilirubin 12.5 H (0.2-1.3) mg/dL AST 242 H (17-59) U/L ALT 101 H (4-49) U/L Alkaline Phosphatase 755 H (38-126) U/L Total Protein 6.0 L (6.3-8.2) g/dL Albumin 2.7 L (3.5-5.0) g/dL Vitamin B12 1275.0 H (200.0-944.0) pg/mL Assessment and Plan (1) Meckels diverticulum Current Visit: Yes Status: Acute Code(s): Q43.0 - MECKEL'S DIVERTICULUM (DISPLACED) (HYPERTROPHIC) SNOMED Code(s): 64181650 (2) Hyperbilirubinemia Current Visit: Yes Status: Acute Code(s): E80.6 - OTHER DISORDERS OF BILIRUBIN METABOLISM SNOMED Code(s): 58308538 (3) Jaundice Current Visit: Yes Status: Acute Code(s): R17 - UNSPECIFIED JAUNDICE SNOMED Code(s): 49280581 (4) Transaminitis Current Visit: Yes Status: Acute Code(s): R74.0 - NONSPEC ELEV OF LEVELS OF TRANSAMNS & LACTIC ACID DEHYDRGNSE SNOMED Code(s): 569408373 (5) Alcohol abuse Current Visit: No Status: Acute Code(s): F10.10 - ALCOHOL ABUSE, UNCOMPLICATED SNOMED Code(s): 89754326 (6) Dehydration Current Visit: No Status: Acute Code(s): E86.0 - DEHYDRATION SNOMED Code(s): 17927087 (7) Anemia Current Visit: Yes Status: Acute Code(s): D64.9 - ANEMIA, UNSPECIFIED SNOMED Code(s): 598223533
[2019-09-23] MEDS ORDERED: PIPERACILLIN-TAZOBACTAM 3.375 GM in SODIUM CHLORIDE 0.9% 100 ML IVPB STA (13:13)
[2019-09-23] MEDS ORDERED: SODIUM CHLORIDE 0.9% 2,000 ML IV ONE (13:14)
[2019-09-23 16:58] LABS: Hepatitis A Antibody IgM Non-Reactive (Non-Reactive); Hepatitis B Core IgM Non-Reactive (Non-Reactive); Hepatitis B Surface Antigen Non-Reactive (Non-Reactive); Hepatitis C IgG Antibody Non-Reactive (Non-Reactive)
[2019-09-23 17:27] LABS: Ferritin 5035.8 ng/mL (22.0-322.0)
[2019-09-23] MEDS: SODIUM CHLORIDE 0.9% 1,000 ML IV SCH (18:02)
[2019-09-23] MEDS: ESCITALOPRAM 20 MG TAB PO SCH (20:52)
[2019-09-23] MEDS: LISINOPRIL 10 MG TAB PO SCH (20:52)
--- NOTE | 2019-09-23 23:32 | P.HPIM ---
History of Present Illness H&P Date: 09/23/19 Chief Complaint: jaundice Alexey Harkins is a 28 yo M with PMH of alcohol abuse who presented to the ED for evaluation of severe jaundice. He was recently admitted with meckel's diverticulitis and at a follow up visit with his docotor was noted to be jaundiced. Pt had outpatient labs done which showed significantly elevated bilirubin so he was recommended to come to the hospital. Pt states that since his discharge approximately 6 weeks ago he has been drinking a pint of vodka daily. He states he has used alcohol regularly for over 20 years. He reports abdominal discomfort and occasional nausea over the past few weeks. In the ED his labs showed Hgb 9.6, bili 16.2, alk phos 1200, AST 550. Review of Systems All systems: negative Constitutional: Reports as per HPI, Reports malaise, Reports night sweats, Denies chills, Denies fever Eyes: denies blurred vision, denies pain Ears, nose, mouth and throat: Denies headache, Denies sore throat Cardiovascular: Denies chest pain, Denies shortness of breath Respiratory: Denies cough Gastrointestinal: Reports abdominal pain, Reports indigestion, Reports jaundice, Reports nausea, Denies diarrhea, Denies vomiting Musculoskeletal: Denies myalgias Integumentary: Denies pruritus, Denies rash Neurological: Denies numbness, Denies weakness Psychiatric: Denies anxiety, Denies depression Endocrine: Denies fatigue, Denies weight change Past Medical History Past Medical History: No Reported History Additional Past Medical History / Comment(s): diverticulits, ETOH History of Any Multi-Drug Resistant Organisms: None Reported Past Surgical History: No Surgical Hx Reported Additional Past Surgical History / Comment(s): [place] teeth Past Anesthesia/Blood Transfusion Reactions: No Reported Reaction Past Psychological History: No Psychological Hx Reported Smoking Status: Current every day smoker Past Alcohol Use History: Daily, Heavy Past Drug Use History: None Reported - Past Family History Father Family Medical History: CVA/TIA, Myocardial Infarction (PR) Mother Family Medical History: Cancer Additional Family Medical History / Comment(s): Breast cancer Medications and Allergies Home Medications Medication Instructions Recorded Confirmed Type Escitalopram [Lexapro] 20 mg PO HS 08/03/19 09/22/19 History Lisinopril [Zestril] 10 mg PO HS 08/03/19 09/22/19 History Folic Acid 1 mg PO DAILY #30 tablet 08/05/19 09/22/19 Rx Pantoprazole Sodium [Protonix] 40 mg PO DAILY #30 tablet. 08/05/19 09/22/19 Rx Allergies Allergy/AdvReac Type Severity Reaction Status Date / Time No Known Allergies Allergy Verified 09/22/19 16:00 Physical Exam Vitals: Vital Signs Temp Pulse Resp BP BP Pulse Ox 09/23/19 20:36 98.3 F 67 15 135/86 97 09/23/19 11:25 98.7 F 80 18 132/77 98 09/23/19 04:36 98.4 F 85 18 134/73 98 Intake and Output 09/23/19 09/23/19 09/24/19 14:59 22:59 06:59 Intake Total 450 Balance 450 Intake: Intake, IV Titration 450 Amount Sodium Chloride 0.9% 1, 450 000 ml @ 75 mls/hr IV . [id number] [facility] Rx#:[id number] Other: # Voids 1 General: jaundiced white male in NAD. Vitals reviewed Eyes: PERRL, EOMI, sclera icteric HENT: normocephalic, mucus membranes moist Neck: supple, no JVD Lungs: normal respiratory effort, no wheezes or rales CV: Regular rate and rhythm, no murmur. Peripheral pulses 2+ Abdomen: soft, distended, no organomegaly. Nontender Lymph: no cervical or axillary LAD Skin: warm and dry.jaundice Neuro: A&Ox3, normal mood and affect Results CBC & Chem 7: 09/22/19 10:46 09/23/19 06:45 Labs: Abnormal Lab Results - Last 24 Hours (Table) 09/23/19 09/23/19 09/23/19 Range/Units 06:45 06:45 11:48 Retic Count 12.0 H (0.5-2.0) % BUN <2 L (9-20) mg/dL TIBC 40 L (228-460) ug/dL % Saturation 330.00 H (15.00-50.00) Ferritin 5035.8 H (22.0-322.0) ng/mL Total Bilirubin 14.1 H (0.2-1.3) mg/dL AST 371 H (17-59) U/L ALT 127 H (4-49) U/L Alkaline Phosphatase 920 H (38-126) U/L Total Protein 6.1 L (6.3-8.2) g/dL Albumin 2.7 L (3.5-5.0) g/dL Vitamin B12 1275.0 H (200.0-944.0) pg/mL Thrombosis Risk Factor Assmnt - Choose All That Apply Any of the Below Risk Factors Present?: Yes Each Factor Represents 1 point: Age 41-60 years Other Risk Factors: No Other congenital or acquired thrombophilia - If yes, enter type in comment: No Thrombosis Risk Factor Assessment Total Risk Factor Score: 1 Thrombosis Risk Factor Assessment Level: Low Risk Assessment and Plan (1) Cirrhosis Current Visit: Yes Status: Acute Code(s): K74.60 - UNSPECIFIED CIRRHOSIS OF LIVER SNOMED Code(s): 54368217 (2) Hyperbilirubinemia Current Visit: Yes Status: Acute Code(s): E80.6 - OTHER DISORDERS OF BILIRUBIN METABOLISM SNOMED Code(s): 44020275 (3) Jaundice Current Visit: Yes Status: Acute Code(s): R17 - UNSPECIFIED JAUNDICE SNOMED Code(s): 04977542 (4) Meckels diverticulum Current Visit: Yes Status: Acute Code(s): Q43.0 - MECKEL'S DIVERTICULUM (DISPLACED) (HYPERTROPHIC) SNOMED Code(s): 20750480 (5) Transaminitis Current Visit: Yes Status: Acute Code(s): R74.0 - NONSPEC ELEV OF LEVELS OF TRANSAMNS & LACTIC ACID DEHYDRGNSE SNOMED Code(s): 787347248 (6) Abdominal pain Current Visit: No Status: Acute Code(s): R10.9 - UNSPECIFIED ABDOMINAL PAIN SNOMED Code(s): 48228411 (7) Alcohol withdrawal Current Visit: No Status: Acute Code(s): F10.239 - ALCOHOL DEPENDENCE WITH WITHDRAWAL, UNSPECIFIED SNOMED Code(s): 132022869 Plan: 1. Hyperbilirubinemia. Elevated LFTs. Suspect secondary to alcoholic cirrhosis. GI and surgery consulted. Protonix, IV fluids. Hepatitis workup and trend LFTs 2. Alcohol withdrawl. [facility] protocol
[2019-09-24] MEDS: SODIUM CHLORIDE 0.9% 1,000 ML IV SCH (05:42)
[2019-09-24 06:52] LABS: INR 1.1 (<1.2); Prothrombin Time 10.9 sec (9.0-12.0)
[2019-09-24 07:29] LABS: ALT 101 U/L (4-49); AST 242 U/L (17-59); African American GFR (CKD) >90 (>60 ml/min/1.73 sqM); Albumin 2.7 g/dL (3.5-5.0); Alkaline Phosphatase 755 U/L (38-126); Anion Gap 8 mmol/L; Blood Urea Nitrogen 2 mg/dL (9-20); Calcium 8.6 mg/dL (8.4-10.2); Carbon Dioxide 21 mmol/L (22-30); Chloride 109 mmol/L (98-107); Glucose 81 mg/dL (74-99); Non-African American GFR(CKD) >90 (>60 ml/min/1.73 sqM); Sodium 138 mmol/L (137-145); Total Bilirubin 12.5 mg/dL (0.2-1.3)
--- NOTE | 2019-09-24 09:25 | P.PN ---
Subjective Progress Note Date: 09/23/19 Principal diagnosis: Elevated liver enzymes, alcoholic hepatitis, macrocytic anemia The patient is seen lying in bed denies any abdominal pain, nausea, vomiting, diarrhea or constipation. Overall feeling somewhat improved. Objective - Vital Signs Vital signs: Vital Signs Temp 98.7 F 09/23/19 11:25 Pulse 80 09/23/19 11:25 Resp 18 09/23/19 11:25 BP 132/77 09/23/19 11:25 Pulse Ox 98 09/23/19 11:25 Intake & Output 09/22/19 09/23/19 09/23/19 18:59 06:59 18:59 Intake Total 450 Balance 450 Weight 77.111 kg Intake: Intake, IV Titration 450 Amount Sodium Chloride 0.9% 1, 450 000 ml @ 75 mls/hr IV . [id number] [facility] Rx#:[id number] Other: Voiding Method Toilet # Voids 3 - Exam On physical examination, patient appears comfortable in no apparent distress. HEAD: Normocephalic, atraumatic. EYES: Scleral icterus. No conjunctival injection. MOUTH: No lesions, tongue midline. NECK: Trachea midline, no gross abnormalities. ABDOMEN: Soft, thin. Bowel sounds are positive. No organomegaly. No guarding or rigidity. EXTREMITIES: No pedal edema. SKIN: No rashes, jaundice. NEUROLOGIC: Alert and oriented x3. No focal deficits. - Labs CBC & Chem 7: 09/22/19 10:46 09/24/19 05:35 Labs: Abnormal Lab Results - Last 24 Hours (Table) 09/22/19 09/23/19 09/23/19 Range/Units 10:46 06:45 11:48 Lymphocytes # (Manual) 0.54 L (1.0-4.8) k/uL Metamyelocytes # (Man) 0.23 H (0) k/uL Myelocytes # (Manual) 0.15 H (0) k/uL Retic Count 12.0 H (0.5-2.0) % BUN <2 L (9-20) mg/dL Total Bilirubin 14.1 H (0.2-1.3) mg/dL AST 371 H (17-59) U/L ALT 127 H (4-49) U/L Alkaline Phosphatase 920 H (38-126) U/L Total Protein 6.1 L (6.3-8.2) g/dL Albumin 2.7 L (3.5-5.0) g/dL Assessment and Plan (1) Alcoholic liver disease Narrative/Plan: 38-year-old male with a long-standing history of heavy alcohol abuse for the last 20 years who was admitted to the hospital with complaints of painless jau ndice found to have marked elevation in liver enzymes with both a cholestatic and hepatocellular pattern. Suspicion is for alcoholic hepatitis given patient's long-standing history of alcohol abuse, however cannot rule out a drug-induced liver injury as he believes he had Augmentin for an upper res piratory tract infection in the past few weeks. Acute viral hepatitis testing was negative. Current Visit: Yes Status: Acute Code(s): K70.9 - ALCOHOLIC LIVER DISEASE, UNSPECIFIED SNOMED Code(s): 98888383 (2) Hyperbilirubinemia Current Visit: Yes Status: Acute Code(s): E80.6 - OTHER DISORDERS OF BILIRUBIN METABOLISM SNOMED Code(s): 22772933 (3) Jaundice Current Visit: Yes Status: Acute Code(s): R17 - UNSPECIFIED JAUNDICE SNOMED Code(s): 72714379 (4) Transaminitis Current Visit: Yes Status: Acute Code(s): R74.0 - NONSPEC ELEV OF LEVELS OF TRANSAMNS & LACTIC ACID DEHYDRGNSE SNOMED Code(s): 747932746 (5) Alcohol abuse Current Visit: No Status: Acute Code(s): F10.10 - ALCOHOL ABUSE, UNCOMPLICATED SNOMED Code(s): 34529613 Plan: Supportive care Okay for diet Alcohol abstinence Continue to monitor for signs or symptoms of alcohol withdrawal Acute viral hepatitis panel testing negative to date Continue to monitor CBC, BMP, LFTs, INR Thank you for allowing us to participate in the care of the patient we will continue to follow
[2019-09-24] MEDS: PANTOPRAZOLE 40 MG TABLET PO SCH (10:32)
[2019-09-24] MEDS: THIAMINE 100 MG TAB PO SCH ×2 (10:32→16:04)
[2019-09-24] MEDS: LACTULOSE 20 GM/30 ML CUP PO SCH ×2 (10:32→21:46)
[2019-09-24] MEDS: PIPERACILLIN-TAZOBACTAM 3.375 GM in SODIUM CHLORIDE 0.9% 100 ML IVPB SCH ×4 (10:33→16:47)
--- NOTE | 2019-09-24 11:26 | P.PN ---
Subjective Progress Note Date: 09/24/19 Principal diagnosis: Jaundice Patient doing well today. Denies abdominal pain. Liver enzymes remain elevated. Objective - Vital Signs Vital signs: Vital Signs Temp 98.3 F 09/24/19 05:19 Pulse 102 H 09/24/19 08:00 Resp 16 09/24/19 08:00 BP 137/88 09/24/19 05:19 Pulse Ox 99 09/24/19 05:19 Intake & Output 09/23/19 09/24/19 09/24/19 18:59 06:59 18:59 Intake Total 450 675 Balance 450 675 Intake: Intake, IV Titration 450 675 Amount Sodium Chloride 0.9% 1, 450 675 000 ml @ 75 mls/hr IV . [id number] [facility] Rx#:[id number] Other: Voiding Method Toilet Toilet # Voids 1 - Exam Abdomen: Soft, nontender, nondistended - Labs CBC & Chem 7: 09/22/19 10:46 09/24/19 05:35 Labs: Abnormal Lab Results - Last 24 Hours (Table) 09/23/19 09/23/19 09/24/19 Range/Units 06:45 11:48 05:35 Retic Count 12.0 H (0.5-2.0) % Chloride 109 H (98-107) mmol/L Carbon Dioxide 21 L (22-30) mmol/L BUN 2 L (9-20) mg/dL TIBC 40 L (228-460) ug/dL % Saturation 330.00 H (15.00-50.00) Ferritin 5035.8 H (22.0-322.0) ng/mL Total Bilirubin 12.5 H (0.2-1.3) mg/dL AST 242 H (17-59) U/L ALT 101 H (4-49) U/L Alkaline Phosphatase 755 H (38-126) U/L Total Protein 6.0 L (6.3-8.2) g/dL Albumin 2.7 L (3.5-5.0) g/dL Vitamin B12 1275.0 H (200.0-944.0) pg/mL Assessment and Plan (1) Alcoholic liver disease Narrative/Plan: Patient without new complaints. Would like to go home today. Liver enzyme e levation on the basis of alcohol use. No surgical intervention planned. Current Visit: Yes Status: Acute Code(s): K70.9 - ALCOHOLIC LIVER DISEASE, UNSPECIFIED SNOMED Code(s): 85087429
[2019-09-24] MEDS: IOPAMIDOL CONTRAST (ORAL USE) VIAL PO PRN ×2 (15:45→16:44)
--- NOTE | 2019-09-24 15:45 | XR ---
EXAMINATION TYPE: XR chest 1V portable DATE OF EXAM: 09/24/2019 COMPARISON: 12/05/2018 HISTORY: Chest pain TECHNIQUE: FINDINGS: Heart and mediastinum are normal. Lungs are clear. Diaphragm is normal. Bony thorax appears normal. IMPRESSION: Normal chest. No change.
--- NOTE | 2019-09-24 17:16 | PN ---
PROGRESS NOTE DATE OF SERVICE: 09/24/2019 I am covering for Dr. Muhammad. HISTORY OF PRESENT ILLNESS: This 38-year-old gentleman who presented with significant alcohol abuse, had significant jaundice. The patient also had a history of diverticulosis also being followed by surgery. Gastroenterology saw the patient. Hemoglobin is 9.6 yesterday with MCV 113, and the total bilirubin was 12.5 and AST was 242, ALT was 101, and alkaline phosphatase 755 and vitamin B12 was 1275. The patient had abdominal ultrasound which showed cholecystitis, and hepatic steatosis. Patient had abdomen and pelvis CAT scan in July of this year which showed inflammation in the ileum may be ileitis and Meckel's diverticulitis was also noted. The patient has significant history of alcohol intake. PAST MEDICAL HISTORY: Reviewed. REVIEW OF SYSTEMS: CARDIOVASCULAR: No angina or palpitations. RESPIRATORY: As mentioned earlier. GI as mentioned earlier. : No dysuria. NERVOUS SYSTEM: No numbness or weakness. CURRENT MEDICATIONS: Reviewed and include: 1. Lexapro 20 mg daily. 2. Dilaudid. 3. Cephulac. 4. Zestril. 5. Ativan. 6. Narcan. 7. Protonix. 8. Zosyn IV. PHYSICAL EXAMINATION: Patient is alert, oriented x3. Pulse 73. Blood pressure 137/88, respirations 16, temp 98.2, pulse ox 98% on room air. HEENT: Conjunctivae icteric. Oral mucosa icteric. NECK is no jugular venous distention. No carotid bruit. No lymph node enlargement. CARDIOVASCULAR: S1-S2 normal. RESPIRATIONS: Breath sounds diminished in the bases. No rhonchi. No crackles. ABDOMEN: Soft. Obese. Mild diffuse discomfort on palpation. No guarding. No rigidity. No mass palpable. LEGS: No edema. No swelling. NERVOUS SYSTEM: Higher functions as mentioned earlier. Moves all 4 limbs. No focal motor or sensory deficits. LYMPHATICS: No lymph node palpable in the neck, axilla or groin. SKIN: Jaundiced. LABS: Are as mentioned earlier. Retic count is 12 and total bilirubin is 16.2, and ferritin is 5205. Iron is 132. Vitamin B2 is elevated. ASSESSMENT: 1. Acute hyperbilirubinemia, possibly secondary to cirrhosis of the liver. Rule out obstructive jaundice. 2. Rule out hemolysis. 3. Rule out cholecystitis. 4. History of diverticulosis. 5. History of nicotine dependence. 6. History of heavy alcohol intake. 7. Anemia macrocytic. 8. Elevated retic count. 9. Increased total bilirubin. 10.Increased AST, ALT, alkaline phosphatase. 11.Elevated ammonia. 12.Hypoalbuminemia. 13.FULL CODE. RECOMMENDATIONS: This 38-year-old gentleman who presented with multiple complex medical issues, we will monitor the patient closely. Continue the current medications. Broad-spectrum IV antibiotics initiated. I would also recommend repeat labs and also a CT scan of the abdomen and pelvis. Closely follow with surgery and gastroenterology. Hepatitis panel has been requested. Guarded prognosis because of multiple complex medical issues. Further recommendations to follow. EBV IgM was also noted. A copy of this forwarded to Dr. Geovanni Muhammad. MMAWAL / SEBASTIÁNN: [id number] / DARRIUS
--- NOTE | 2019-09-24 17:54 | CT ---
EXAMINATION TYPE: CT abdomen pelvis wo con DATE OF EXAM: 09/24/2019 COMPARISON: 08/03/2019 HISTORY: Jaundice. CT DLP: 413.1 mGycm Automated exposure control for dose reduction was used. There is oral contrast. Lung bases are clear. There is no pleural effusion. Heart appears normal. There is no pericardial eff usion. There is patchy hypodensity throughout the liver consistent with variable fatty infiltration. Liver i s markedly enlarged and measures 26.5 cm in length. Spleen is intact. There is no pancreatic mass. Ga llbladder is somewhat contracted. There is no adrenal mass. Kidneys have normal size and contour. There is no hydronephrosis. Ureters a re not dilated. There is no retroperitoneal adenopathy. Appendix is posterior and appears normal. Th ere is no evidence of intestinal wall thickening. there is mild ascites fluid in the pelvis. There is minimal fluid in the right paracolic gutter. There is no evidence of pelvic mass. There is no inguin al hernia. Bladder distends smoothly. There is contrast reaching the terminal ileum without evidence of a small bowel obstruction. There is however jejunal intussusception in the left mid abdomen best seen on the coronal image 49. The lumb ar spine is intact. Disc spaces are normal. There is no compression fracture. Bony pelvis is intact. IMPRESSION: There is hepatomegaly with variable hypodensity throughout the liver consistent with fatty infiltrati on or hepatitis. No discrete liver mass. No dilated ducts. There is jejunal intussusception left mid abdomen without evidence of a small bowel obstruction. Norm al appendix. Mild abdominal ascites.
[2019-09-24] MEDS: ESCITALOPRAM 20 MG TAB PO SCH (21:45)
[2019-09-24] MEDS: LISINOPRIL 10 MG TAB PO SCH (21:46)
[2019-09-25] MEDS: PIPERACILLIN-TAZOBACTAM 3.375 GM in SODIUM CHLORIDE 0.9% 100 ML IVPB SCH ×2 (00:52→09:07)
--- NOTE | 2019-09-25 01:03 | P.PN ---
Subjective Progress Note Date: 09/24/19 Principal diagnosis: Elevated liver enzymes, alcoholic hepatitis, macrocytic anemia The patient is seen lying in bed with no acute complaints. Denies any nausea or vomiting. No abdominal pain, and he is tolerating his diet. Objective - Vital Signs Vital signs: Vital Signs Temp 98.3 F 09/24/19 05:19 Pulse 73 09/24/19 05:19 Resp 16 09/24/19 05:19 BP 137/88 09/24/19 05:19 Pulse Ox 99 09/24/19 05:19 Intake & Output 09/23/19 09/24/19 09/24/19 18:59 06:59 18:59 Intake Total 450 675 Balance 450 675 Intake: Intake, IV Titration 450 675 Amount Sodium Chloride 0.9% 1, 450 675 000 ml @ 75 mls/hr IV . [id number] [facility] Rx#:[id number] Other: Voiding Method Toilet # Voids 1 - Exam On physical examination, patient appears comfortable in no apparent distress. HEAD: Normocephalic, atraumatic. EYES: Scleral icterus. No conjunctival injection. MOUTH: No lesions, tongue midline. NECK: Trachea midline, no gross abnormalities. ABDOMEN: Soft, thin. Bowel sounds are positive. No organomegaly. No guarding or rigidity. EXTREMITIES: No pedal edema. SKIN: No rashes, jaundice. NEUROLOGIC: Alert and oriented x3. No focal deficits. - Labs CBC & Chem 7: 09/22/19 10:46 09/24/19 05:35 Labs: Abnormal Lab Results - Last 24 Hours (Table) 09/23/19 09/23/19 09/24/19 Range/Units 06:45 11:48 05:35 Retic Count 12.0 H (0.5-2.0) % Chloride 109 H (98-107) mmol/L Carbon Dioxide 21 L (22-30) mmol/L BUN 2 L (9-20) mg/dL TIBC 40 L (228-460) ug/dL % Saturation 330.00 H (15.00-50.00) Ferritin 5035.8 H (22.0-322.0) ng/mL Total Bilirubin 12.5 H (0.2-1.3) mg/dL AST 242 H (17-59) U/L ALT 101 H (4-49) U/L Alkaline Phosphatase 755 H (38-126) U/L Total Protein 6.0 L (6.3-8.2) g/dL Albumin 2.7 L (3.5-5.0) g/dL Vitamin B12 1275.0 H (200.0-944.0) pg/mL Assessment and Plan (1) Alcoholic liver disease Narrative/Plan: 38-year-old male with a long-standing history of heavy alcohol abuse for the last 20 years who was admitted to the hospital with complaints of painless jaund ice found to have marked elevation in liver enzymes with both a cholestatic and hepatocellular pattern. Suspicion is for alcoholic hepatitis given patient's long-standing history of alcohol abuse, however cannot rule out a drug-induced liver injury as he believes he had Augmentin for an upper respiratory tract infection in the past few weeks. Acute viral hepatitis testing was negative. Iron studies are significant for markedly elevated ferritin, likely secondary to alcohol use, and can be repeated in the outpatient setting. Current Visit: Yes Status: Acute Code(s): K70.9 - ALCOHOLIC LIVER DISEASE, UNSPECIFIED SNOMED Code(s): 18077442 (2) Hyperbilirubinemia Current Visit: Yes Status: Acute Code(s): E80.6 - OTHER DISORDERS OF BILIRUBIN METABOLISM SNOMED Code(s): 42030481 (3) Jaundice Current Visit: Yes Status: Acute Code(s): R17 - UNSPECIFIED JAUNDICE SNOMED Code(s): 65034040 (4) Transaminitis Current Visit: Yes Status: Acute Code(s): R74.0 - NONSPEC ELEV OF LEVELS OF TRANSAMNS & LACTIC ACID DEHYDRGNSE SNOMED Code(s): 043485455 (5) Alcohol abuse Current Visit: No Status: Acute Code(s): F10.10 - ALCOHOL ABUSE, UNCOMPLICATED SNOMED Code(s): 58326108 Plan: Supportive care Okay for diet Alcohol abstinence Continue to monitor for signs or symptoms of alcohol withdrawal Acute viral hepatitis panel testing negative to date Continue to monitor CBC, BMP, LFTs, INR Iron studies were elevated, likely secondary to alcohol abuse and not underlying hemachromatosis, would recommend repeating in the outpatient setting If patient remains stable with improving liver enzymes okay for discharge with follow-up in the outpatient setting Thank you for allowing us to participate in the care of the patient we will continue to follow
[2019-09-25] MEDS: SODIUM CHLORIDE 0.9% 1,000 ML IV SCH ×2 (06:17→09:09)
[2019-09-25 08:51] LABS: ALT 81 U/L (4-49); AST 167 U/L (17-59); African American GFR (CKD) >90 (>60 ml/min/1.73 sqM); Albumin 2.8 g/dL (3.5-5.0); Alkaline Phosphatase 648 U/L (38-126); Anion Gap 9 mmol/L; Bilirubin, Conjugated 3.8 mg/dL (0.0-0.3); Bilirubin, Delta 4.7 mg/dL (0.0-0.2); Bilirubin,Unconjugated 1.8 mg/dL (0.0-1.1); Blood Urea Nitrogen 3 mg/dL (9-20); Calcium 8.6 mg/dL (8.4-10.2); Carbon Dioxide 22 mmol/L (22-30); Chloride 107 mmol/L (98-107); Glucose 112 mg/dL (74-99); LDH 522 U/L (313-618); Non-African American GFR(CKD) >90 (>60 ml/min/1.73 sqM); Potassium 3.8 mmol/L (3.5-5.1); Sodium 138 mmol/L (137-145); Total Bilirubin 10.3 mg/dL (0.2-1.3); Total Protein 6.1 g/dL (6.3-8.2)
[2019-09-25] MEDS: LACTULOSE 20 GM/30 ML CUP PO SCH (09:06)
[2019-09-25] MEDS: PANTOPRAZOLE 40 MG TABLET PO SCH (09:07)
[2019-09-25] MEDS: THIAMINE 100 MG TAB PO SCH (09:07)
[2019-09-25 09:47] LABS: Anisocytosis Moderate; Basophils # (A) 0.1 k/uL (0-0.2); Basophils % (A) 1 %; Eosinophils # (A) 0.2 k/uL (0-0.7); Eosinophils % (A) 3 %; HCT 27.3 % (39.0-53.0); HGB 8.9 gm/dL (13.0-17.5); Hypochromasia Slight; Lymphocytes # (A) 0.9 k/uL (1.0-4.8); Lymphocytes % (A) 12 %; MCH 39.5 pg (25.0-35.0); MCHC 32.6 g/dL (31.0-37.0); Macrocytosis Marked; Mean Platelet Volume 8.4; Monocytes # (A) 0.5 k/uL (0-1.0); Monocytes % (A) 7 %; Neutrophils # (A) 5.7 k/uL (1.3-7.7); Neutrophils % (A) 75 %; Platelet Count 247 k/uL (150-450); RBC 2.25 m/uL (4.30-5.90); WBC 7.6 k/uL (3.8-10.6)
[2019-09-25 09:52] LABS: MCV 121.4 fL (80.0-100.0)
[2019-09-25 10:54] LABS: Stomatocytes Present
[2019-09-25 11:48] VITALS: BP 164/90; PULSE 75; RESP 16; TEMP 98.6
--- NOTE | 2019-09-26 03:12 | DS ---
DISCHARGE SUMMARY DATE OF SERVICE: 09/25/2019. FINAL DIAGNOSES: 1. Acute hyperbilirubinemia, possibly secondary to cirrhosis of liver. No evidence of obstructive jaundice on the repeat CT scan. 2. Rule out cholecystitis. 3. History of diverticulosis. 4. History of nicotine dependence. 5. History of heavy alcohol abuse. 6. Anemia macrocytic. 7. Elevated retic count. 8. Increased total bilirubin. 9. Increased AST, ALT, alkaline phosphatase. 10.Elevated ammonia. 11.Hypoalbuminemia. 12.FULL CODE. DISCHARGE DISPOSITION: The patient will be discharged in stable condition with guarded prognosis. HISTORY OF PRESENT ILLNESS: This 38-year-old gentleman with a past medical history of multiple medical problems being followed by Dr. Lucrecia Aguirre in the outpatient setting was admitted with features of jaundice. The patient has significant alcohol intake. Otherwise, the patient was monitored significantly symptomatically and Gastroenterology saw the patient. Hemoglobin 8.9. The total bilirubin at the time of admission was 16.2, currently is 10.3. Patient is extremely keen on going home. On exam, vitals are stable. EYES: Are icteric. CARDIOVASCULAR: S1, S2 muffled. RESPIRATORY: Breath sounds diminished at the bases. No wheeze. ABDOMEN: Soft, nontender. Lab sinclair as mentioned earlier bilirubin is 10.3, conjugated bilirubin 3.8 only and AST is 167 significantly decreased and the ALT is 81, and the alkaline phosphatase is still elevated at 648. Recommend outpatient followup. Albumin is 2.8. The hepatitis panel is negative. Coronavirus 19 test was also negative. DISCHARGE ADVICE AND MEDICATIONS: 1. Diet is cardiac diet. 2. Activity limited until follow up. 3. Follow up with Dr. Lucrecia Aguirre or Dr. Geovanni Muhammad in 1 to 2 days. 4. Follow up with Dr. Raphael as recommended. Medications are as follows: 1. Lexapro 20 mg at bedtime. 2. Zestril 10 mg at bedtime. 3. Cephulac 20 grams p.o. b.i.d. 4. Folic acid 1 mg daily. 5. Multivitamins one p.o. daily. 6. Protonix 40 mg daily. 7. Thiamine 100 mg p.o. b.i.d. 8. No EtOH. MMODL / IJN: [id number] /
== END 2019-09-25 13:12 | disposition home or self-care (01) | DRG 433 ==
LOC: EC 09:35 → 5NMEDONC 12:01
PROVIDERS: ADMIT Family Medicine; ATTEND Family Medicine
DX: K70.30 Alcoholic cirrhosis of liver without ascites (principal); F10.230 Alcohol dependence with withdrawal, uncomplicated; Z11.59 Encounter for screening for other viral diseases; E88.09 Other disorders of plasma-protein metabolism, not elsewhere classified; K81.9 Cholecystitis, unspecified; F17.200 Nicotine dependence, unspecified, uncomplicated; K76.0 Fatty (change of) liver, not elsewhere classified; Q43.0 Meckel's diverticulum (displaced) (hypertrophic); D53.9 Nutritional anemia, unspecified; E86.0 Dehydration; Z79.899 Other long term (current) drug therapy; Z87.09 Personal history of other diseases of the respiratory system; Z87.19 Personal history of other diseases of the digestive system; Z82.49 Family history of ischemic heart disease and other diseases of the circulatory system; Z80.3 Family history of malignant neoplasm of breast; Z82.3 Family history of stroke
CPT/HCPCS: 36415; 71045; 74176; 76700; 80053; 80074; 81003; 82140; 82150; 82248; 82607; 82728; 83540; 83550; 83615; 83690; 85025; 85045; 85610; 85730; 86645; 86665; 87522; 96360; 96361; 99284

== ENCOUNTER 2024-04-11 19:19 | Inpatient (IN) | payer BC, MEDICAID ==
--- NOTE | 2024-04-11 19:32 | ED ---
General Adult HPI - General Source: patient, family, RN notes reviewed Mode of arrival: ambulatory Limitations: no limitations <Carolann Love - Last Filed: 04/11/24 20:15> - General Source: patient, family, RN notes reviewed, old records reviewed Mode of arrival: ambulatory Limitations: no limitations - History of Present Illness -: days(s) Radiation: non-radiation Severity scale (1-10): 6 Consistency: constant Improves with: none Worsens with: none Associated Symptoms: confusion Treatments Prior to Arrival: none <Riley Brar - Last Filed: 04/11/24 22:38> - General Chief complaint: Psychiatric Symptoms Stated complaint: Vision Issue,Mental Health Time Seen by Provider: 04/11/24 19:30 - History of Present Illness Initial comments: Quick note: 43-year-old male presented to the ER for evaluation of paranoid thoughts. Patient states he is an ex alcoholic and relapsed on Thursday. Denies other drug use. Patient also reports he has been having a twitching right eye. He also reports for "a while now" his left eye will go in and out of vision. No current visual defects. No pain. No SI or HI. (Carolann Love) This is a 43-year-old male to ER with severe paranoia, difficulty with thought process (Riley Brar) - Related Data Home Medications Medication Instructions Recorded Confirmed Escitalopram [Lexapro] 20 mg PO HS 08/03/19 09/22/19 lisinopriL [Zestril] 10 mg PO HS 08/03/19 09/22/19 Previous Rx's Medication Instructions Recorded Folic Acid 1 mg PO DAILY #30 tablet 08/05/19 Pantoprazole Sodium [Protonix] 40 mg PO DAILY #30 tablet. 08/05/19 Lactulose [Cephulac] 20 gm PO BID 5 Days ml 09/25/19 Multivitamins, Thera [Multivitamin] 1 tab PO DAILY #30 tablet 09/25/19 Thiamine [Vitamin B-1] 100 mg PO BID-W/MEALS #30 tab 09/25/19 Allergies Allergy/AdvReac Type Severity Reaction Status Date / Time No Known Allergies Allergy Verified 04/11/24 19:27 Review of Systems ROS Other: All systems not noted in ROS Statement are negative. <Carolann Love - Last Filed: 04/11/24 20:15> ROS Other: All systems not noted in ROS Statement are negative. <Riley Brar - Last Filed: 04/11/24 22:38> ROS Statement: Those systems with pertinent positive or pertinent negative responses have been documented in the HPI. Past Medical History Past Medical History: No Reported History Additional Past Medical History / Comment(s): diverticulits, ETOH History of Any Multi-Drug Resistant Organisms: None Reported Past Surgical History: No Surgical Hx Reported Additional Past Surgical History / Comment(s): [place] teeth Past Anesthesia/Blood Transfusion Reactions: No Reported Reaction Past Psychological History: No Psychological Hx Reported Smoking Status: Current every day smoker Past Alcohol Use History: Daily, Heavy Past Drug Use History: None Reported - Past Family History Father Family Medical History: CVA/TIA, Myocardial Infarction ([place]) Mother Family Medical History: Cancer Additional Family Medical History / Comment(s): Breast cancer <OwenlilyCarolann - Last Filed: 04/11/24 20:15> General Exam Limitations: no limitations <OwenlilyCarolann - Last Filed: 04/11/24 20:15> General appearance: alert, in no apparent distress Head exam: Present: atraumatic, normocephalic, normal inspection Eye exam: Present: normal appearance, PERRL, EOMI. Absent: scleral icterus, conjunctival injection, periorbital swelling ENT exam: Present: normal exam, mucous membranes moist Neck exam: Present: normal inspection. Absent: tenderness, meningismus, lymphadenopathy Respiratory exam: Present: normal lung sounds bilaterally. Absent: respiratory distress, wheezes, rales, rhonchi, stridor Cardiovascular Exam: Present: regular rate, normal rhythm, normal heart sounds. Absent: systolic murmur, diastolic murmur, rubs, gallop, clicks GI/Abdominal exam: Present: soft, normal bowel sounds. Absent: distended, tenderness, guarding, rebound, rigid Extremities exam: Present: normal inspection, full ROM, normal capillary refill. Absent: tenderness, pedal edema, joint swelling, calf tenderness Back exam: Present: normal inspection Neurological exam: Present: alert, oriented X3, CN II-XII intact Psychiatric exam: Present: normal affect, normal mood Skin exam: Present: warm, dry, intact, normal color. Absent: rash <Riley Brar - Last Filed: 04/11/24 22:38> - General Exam Comments Initial Comments: Visual Physical Exam Vital signs reviewed General: Well-appearing, nontoxic, no acute distress. Head: Normocephalic, atraumatic Eyes: PERRLA, EOMI ENT: Airway patent Chest: Nonlabored breathing Skin: No visual rash, normal skin tone Neuro: Alert and oriented 3 Musculoskeletal: No gross abnormalities (Carolann Love) Course <Riley Brar - Last Filed: 04/11/24 22:38> Vital Signs 04/11/24 04/11/24 19:22 21:19 Temperature 97.3 F L Pulse Rate 103 H 105 H Respiratory 17 18 Rate Blood Pressure 177/105 170/122 O2 Sat by Pulse 98 98 Oximetry - Reevaluation(s) Reevaluation #1: 04/11/24 22:37 Medical records reviewed (Riley Brar) Reevaluation #2: 04/11/24 22:38 Patient symptoms improved (Riley Brar) Reevaluation #3: 04/11/24 22:38 Patient informed of results and questions answered (Riley Brar) Reevaluation #4: Was pt. sent in by a medical professional or institution (, PA, COMMERCIAL PRODUCER, urgent care, hospital, or residential...) When possible be specific @ -no Did you speak to anyone other than the patient for history (EMS, parent, family, police, friend...)? What history was obtained from this source @ -no Did you review nursing and triage notes (agree or disagree)? Why? @ -agree Are old charts reviewed (outside hosp., previous admission, EMS record, old EKG, old radiological studies, urgent care reports/EKG's, residential records)? Report findings @ -yes Differential Diagnosis (chest pain, altered mental status, abdominal pain women, abdominal pain men, vaginal bleeding, weakness, fever, dyspnea, syncope, headache, dizziness, GI bleed, back pain, seizure, CVA, palpatations, mental health, musculoskeletal)? @ -prior EKG interpreted by me (3pts min.). @ -yes X-rays interpreted by me (1pt min.). @ -yes negative for acute disease CT interpreted by me (1pt min.). @ -no U/S interpreted by me (1pt. min.). @ -no What testing was considered but not performed or refused? (CT, X-rays, U/S, labs)? Why? @ -none What meds were considered but not given or refused? Why? @ -none Did you discuss the management of the patient with other professionals (professionals i.e. , PA, COMMERCIAL PRODUCER, lab, RT, psych nurse, social insurance analyst, history tutor, teacher, biological technical officer, caser shoe parts)? Give summary @ -no Was smoking cessation discussed for >3mins.? @ -no Was critical care preformed (if so, how long)? @ -no Were there social determinants of health that impacted care today? How? (Homelessness, low income, unemployed, alcoholism, drug addiction, transportation, low edu. Level, literacy, decrease access to med. care, prison, rehab)? @ -none Was there de-escalation of care discussed even if they declined (Discuss DNR or withdrawal of care, Hospice)? DNR status @ -no What co-morbidities impacted this encounter? (DM, HTN, Smoking, COPD, CAD, Cancer, CVA, ARF, Chemo, Hep., AIDS, mental health diagnosis, sleep apnea, morbid obesity)? @ -none Was patient admitted / discharged? Hospital course, mention meds given and route, prescriptions, significant lab abnormalities, going to OR and other pertinent info. @ - Undiagnosed new problem with uncertain prognosis? @ -no Drug Therapy requiring intensive monitoring for toxicity (Heparin, Nitro, Insulin, Cardizem)? @ -no Were any procedures done? @ -no Diagnosis/symptom? @ - Acute, or Chronic, or Acute on Chronic? @ -Acute Uncomplicated (without systemic symptoms) or Complicated (systemic symptoms)? @ -Complicated Side effects of treatment? @ -no Exacerbation, Progression, or Severe Exacerbation? @ -exacerbation Poses a threat to life or bodily function? How? (Chest pain, [place], [place], pneumonia, PE, COPD, DKA, ARF, appy, cholecystitis, CVA, Diverticulitis, Homicidal, Suicidal, threat to staff... and all critical care pts) @ -yes (Riley Brar) Reevaluation #5: Differential Mental Health Depression, anxiety, bipolar, psychosis, schizophrenia, borderline personality, situational depression, adjustment disorder, behavioral disorder, brain tumor, malingering, substance abuse, encephalopathy, medication reaction, dementia, hypothyroidism, degenerative neurologic disorder, lupus.... This is not meant to be all-inclusive list (Riley Brar) Medical Decision Making <Carolann Love - Last Filed: 04/11/24 20:15> - Medical Decision Making I performed the quick note portion of this chart. Electronically signed by Carolann Love PA-C (Carolann Love) Disposition <Carolann Love - Last Filed: 04/11/24 20:15> <Riley Brar - Last Filed: 04/11/24 22:38> Referrals: Levi Bar MD [Primary Care Provider] - 1-2 days
[2024-04-11 22:46] LABS: Appearance,Urine Clear (Clear); Bilirubin,Urine Negative (Negative); Blood,Urine Negative (Negative); Color,Urine Colorless; Glucose,Urine (UA) Negative (Negative); Ketones,Urine Negative (Negative); Leukocyte Esterase,Urine Negative (Negative); Nitrite,Urine Negative (Negative); PH, Urine 5.5 (5.0-8.0); Protein,Urine Negative (Negative); Urobilinogen,Urine <2.0 mg/dL (<2.0)
[2024-04-11] MEDS: NICOTINE 21MG/24HR PATCH TRANSDERM STA (22:48)
[2024-04-11] MEDS: LORazepam 2 MG/ML INJ IV STA (22:48)
[2024-04-11] MEDS: SODIUM CHLORIDE 0.9% 1,000 ML IV STA (22:52)
[2024-04-11 22:56] LABS: Basophils # (A) 0.1 k/uL (0-0.2); Basophils % (A) 0 %; Eosinophils # (A) 0.2 k/uL (0-0.7); Eosinophils % (A) 1 %; HCT 49.5 % (39.0-53.0); HGB 17.2 gm/dL (13.0-17.5); Lymphocytes % (A) 17 %; MCH 32.3 pg (25.0-35.0); MCHC 34.8 g/dL (31.0-37.0); MCV 92.8 fL (80.0-100.0); Mean Platelet Volume 7.1; Monocytes # (A) 0.7 k/uL (0-1.0); Monocytes % (A) 6 %; Neutrophils % (A) 74 %; Platelet Count 276 k/uL (150-450); RBC 5.33 m/uL (4.30-5.90); RDW 12.9 % (11.5-15.5); WBC 12.1 k/uL (3.8-10.6)
[2024-04-11 23:02] LABS: Prothrombin Time 11.5 sec (10.0-12.5)
[2024-04-11 23:15] LABS: Amphetamine Screen,Urine Detected (NotDetected); Barbiturate Screen,Urine Not Detected (NotDetected); Benzodiazepines Screen,Urine Not Detected (NotDetected); Cocaine Screen,Urine Not Detected (NotDetected); Methadone Screen, Urine Not Detected (NotDetected); Opiate Screen,Urine Not Detected (NotDetected); Oxycodone Screen, Urine Not Detected (NotDetected); Phencyclidine Screen,Urine Not Detected (NotDetected); Tricyclic Antidepressant,Urine Not Detected (NotDetected); Urn Cannabinoid Scrn Detected (NotDetected)
[2024-04-11 23:32] LABS: ALT 20 U/L (4-49); AST 29 U/L (17-59); African American GFR (CKD) >90 (>60 ml/min/1.73 sqM); Alcohol <10 mg/dL; Alkaline Phosphatase 81 U/L (38-126); Anion Gap 11 mmol/L; Blood Urea Nitrogen 12 mg/dL (9-20); Calcium 9.8 mg/dL (8.4-10.2); Carbon Dioxide 24 mmol/L (22-30); Chloride 99 mmol/L (98-107); Glucose 96 mg/dL (74-99); Lipase 42 U/L (23-300); Magnesium 2.1 mg/dL (1.6-2.3); Non-African American GFR(CKD) >90 (>60 ml/min/1.73 sqM); Phosphorus 4.2 mg/dL (2.5-4.5); Potassium 3.8 mmol/L (3.5-5.1); Sodium 134 mmol/L (137-145); Total Bilirubin 1.1 mg/dL (0.2-1.3); Total Protein 7.7 g/dL (6.3-8.2)
--- NOTE | 2024-04-11 23:35 | CT ---
EXAMINATION TYPE: CT brain wo con DATE OF EXAM: 04/11/2024 COMPARISON: None. CLINICAL INDICATION: Male, 43 years old with history of ams; PHH, right eye twitching and left eye vi simin changes. pt also is here for MH evaluation due to paranoid thoughts CT DLP: 1109.8 mGycm Automated exposure control for dose reduction was used. FINDINGS: No acute hemorrhage or midline shift. Ventricles and sulci are within normal limits in size for patie nt's age. Cole-white matter differentiation is maintained. Nasal septum is deviated to right of midli ne. Paranasal sinuses are grossly clear. Globes are intact bilaterally. IMPRESSION: No acute intracranial hemorrhage or midline shift. [facility], , 04/11/2024 11:32 PM
[2024-04-12] MEDS ORDERED: MAG HYDROX/AL HYDROX/SIMETH 355 ML BOTTLE PO PRN (03:10)
[2024-04-12] MEDS ORDERED: traZODone HCL 50 MG TAB PO PRN (03:10)
[2024-04-12] MEDS ORDERED: IBUPROFEN 600 MG TAB PO PRN (03:10)
[2024-04-12] MEDS ORDERED: MAGNESIUM HYDROXIDE 2,400 MG/30 ML CUP PO PRN (03:10)
[2024-04-12] MEDS ORDERED: LORazepam 2 MG/ML INJ IM PRN (03:10)
[2024-04-12] MEDS ORDERED: ACETAMINOPHEN TAB 325 MG TAB PO PRN (03:10)
[2024-04-12] MEDS ORDERED: LORazepam 1 MG TAB PO PRN (03:10)
[2024-04-12] MEDS ORDERED: HALOPERIDOL LACTATE 5 MG/ML 1 ML VIAL IM PRN (03:10)
[2024-04-12] MEDS ORDERED: haloperidoL 5 MG TAB PO PRN (03:10)
[2024-04-12 04:55] VITALS: RESP 16
[2024-04-12] MEDS: NICOTINE 21MG/24HR PATCH TRANSDERM SCH (09:19)
--- NOTE | 2024-04-12 16:24 | P.HP ---
Psychiatric H&P - . H&P Date: 04/12/24 History & Physical: Allergies Allergy/AdvReac Type Severity Reaction Status Date / Time No Known Allergies Allergy Verified 04/11/24 19:27 Vital Signs Temp 97.6 F 04/12/24 04:22 Pulse 83 04/12/24 04:22 Resp 16 04/12/24 04:22 BP 128/87 04/12/24 04:22 Pulse Ox 100 04/12/24 04:22 FiO2 Intake & Output 04/11/24 04/12/24 04/12/24 18:59 06:59 18:59 Weight 81.148 kg Laboratory Last Values WBC 12.1 k/uL (3.8-10.6) H 04/11/24 22:43 RBC 5.33 m/uL (4.30-5.90) 04/11/24 22:43 Hgb 17.2 gm/dL (13.0-17.5) 04/11/24 22:43 Hct 49.5 % (39.0-53.0) 04/11/24 22:43 MCV 92.8 fL (80.0-100.0) 04/11/24 22:43 MCH 32.3 pg (25.0-35.0) 04/11/24 22:43 MCHC 34.8 g/dL (31.0-37.0) 04/11/24 22:43 RDW 12.9 % (11.5-15.5) 04/11/24 22:43 Plt Count 276 k/uL (150-450) 04/11/24 22:43 MPV 7.1 04/11/24 22:43 Neutrophils % 74 % 04/11/24 22:43 Lymphocytes % 17 % 04/11/24 22:43 Monocytes % 6 % 04/11/24 22:43 Eosinophils % 1 % 04/11/24 22:43 Basophils % 0 % 04/11/24 22:43 Neutrophils # 9.0 k/uL (1.3-7.7) H 04/11/24 22:43 Lymphocytes # 2.0 k/uL (1.0-4.8) 04/11/24 22:43 Monocytes # 0.7 k/uL (0-1.0) 04/11/24 22:43 Eosinophils # 0.2 k/uL (0-0.7) 04/11/24 22:43 Basophils # 0.1 k/uL (0-0.2) 04/11/24 22:43 PT 11.5 sec (10.0-12.5) 04/11/24 22:43 INR 1.0 (<1.2) 04/11/24 22:43 Sodium 134 mmol/L (137-145) L 04/11/24 22:43 Potassium 3.8 mmol/L (3.5-5.1) 04/11/24 22:43 Chloride 99 mmol/L (98-107) 04/11/24 22:43 Carbon Dioxide 24 mmol/L (22-30) 04/11/24 22:43 Anion Gap 11 mmol/L 04/11/24 22:43 BUN 12 mg/dL (9-20) 04/11/24 22:43 Creatinine 0.92 mg/dL (0.66-1.25) 04/11/24 22:43 Est GFR (CKD-EPI)AfAm >90 (>60 ml/min/1.73 sqM) 04/11/24 22:43 Est GFR (CKD-EPI)NonAf >90 (>60 ml/min/1.73 sqM) 04/11/24 22:43 Glucose 96 mg/dL (74-99) 04/11/24 22:43 Calcium 9.8 mg/dL (8.4-10.2) 04/11/24 22:43 Phosphorus 4.2 mg/dL (2.5-4.5) 04/11/24 22:43 Magnesium 2.1 mg/dL (1.6-2.3) 04/11/24 22:43 Total Bilirubin 1.1 mg/dL (0.2-1.3) 04/11/24 22:43 AST 29 U/L (17-59) 04/11/24 22:43 ALT 20 U/L (4-49) 04/11/24 22:43 Alkaline Phosphatase 81 U/L (38-126) 04/11/24 22:43 Ammonia 18 umol/L (<30) 04/12/24 00:57 Total Protein 7.7 g/dL (6.3-8.2) 04/11/24 22:43 Albumin 5.0 g/dL (3.5-5.0) 04/11/24 22:43 Lipase 42 U/L (23-300) 04/11/24 22:43 Urine Color Colorless 04/11/24 22:36 Urine Appearance Clear (Clear) 04/11/24 22:36 Urine pH 5.5 (5.0-8.0) 04/11/24 22:36 Ur Specific [place] 1.010 (1.001-1.035) 04/11/24 22:36 Urine Protein Negative (Negative) 04/11/24 22:36 Urine Glucose (UA) Negative (Negative) 04/11/24 22:36 Urine Ketones Negative (Negative) 04/11/24 22:36 Urine Blood Negative (Negative) 04/11/24 22:36 Urine Nitrite Negative (Negative) 04/11/24 22:36 Urine Bilirubin Negative (Negative) 04/11/24 22:36 Urine Urobilinogen <2.0 mg/dL (<2.0) 04/11/24 22:36 Ur Leukocyte Esterase Negative (Negative) 04/11/24 22:36 Urine Opiates Screen Not Detected (NotDetected) 04/11/24 22:36 Ur Oxycodone Screen Not Detected (NotDetected) 04/11/24 22:36 Urine Methadone Screen Not Detected (NotDetected) 04/11/24 22:36 Ur Barbiturates Screen Not Detected (NotDetected) 04/11/24 22:36 U Tricyclic Antidepress Not Detected (NotDetected) 04/11/24 22:36 Ur Phencyclidine Scrn Not Detected (NotDetected) 04/11/24 22:36 Ur Amphetamines Screen Detected (NotDetected) H 04/11/24 22:36 U Methamphetamines Scrn Not Detected (NotDetected) 04/11/24 22:36 U Benzodiazepines Scrn Not Detected (NotDetected) 04/11/24 22:36 Urine Cocaine Screen Not Detected (NotDetected) 04/11/24 22:36 U Marijuana (THC) Screen Detected (NotDetected) H 04/11/24 22:36 Serum Alcohol <10 mg/dL 04/11/24 22:43 Influenza Type A (PCR) Not Detected (Not Detectd) 04/12/24 01:27 Influenza Type B (PCR) Not Detected (Not Detectd) 04/12/24 01:27 RSV (PCR) Not Detected (Not Detectd) 04/12/24 01:27 SARS-CoV-2 (PCR) Not Detected (Not Detectd) 04/12/24 01:27 Dictation was produced using [employer] dictation software. Please excuse any grammatical, word or spelling errors. IDENTIFYING DATA: Patient is a 43 years old male with past history of alcohol use disorder presented to the emergency room for paranoid thoughts. HPI: Patient presented to the hospital for paranoid thoughts, he has a history of alcohol use disorder and relapsed on Thursday. He states that his sister counselor asked him to go to the hospital to be evaluated since he had been having those paranoid thoughts. He states that he been having issues with his ex- " Birgit" and reported that she is very active and Tik[employer], reported that he has been monitoring her posting and the comments she gets and reported that it seems like there is something radiated to " prostitution, and scam," reported that he told her about how he feels and she was kind of upset and she always t hought with him for those behavior. He states that he also has a friend that lives close by and he feels paranoid about him to reported that there is certain words they use makes him paranoid and suspicious about them. He denied any current suicidal, or homicidal thoughts or behavior, intention or plan. Denied any current auditory or visual hallucination. He reported feeling down at times however denied feeling hopeless, helpless, worthless. He reported his sleep is " not bad" noted that he gets 4 hours sleep at night. States that he has been feeling that way for few years however it increased 6 months ago. He states that he has been getting racing thoughts, flights of ideas at times and reported that when he was talking to his outpatient doctor he was started on Adderall with irritability and poor concentration and focus. He denied any previous history of abuse or trauma, reported that he had concussion as a child. He states that he wanted to get him help and willing to take medication. PAST PSYCHIATRIC HISTORY: Inpatient hospitalization : none noted Outpatient : Reported that he has been following up with [facility] for alcohol use, stopped last October Current psychotropic medication: pt reported Adderall started few months ago, chart review show Lexapro 20 mg p.o. daily Previous psychotropic medication: Denies Suicidal attempt: Patient denies PMH: as per ER note Past Medical History: No Reported History Additional Past Medical History / Comment(s): diverticulits, ETOH History of Any Multi-Drug Resistant Organisms: None Reported Past Surgical History: No Surgical Hx Reported Additional Past Surgical History / Comment(s): [place] teeth Past Anesthesia/Blood Transfusion Reactions: No Reported Reaction Past Psychological History: No Psychological Hx Reported Smoking Status: Current every day smoker Past Alcohol Use History: Daily, Heavy Past Drug Use History: None Reported ALLERGIES: as per EMR CHEMICAL DEPENDENCY HISTORY: Tobacco: Reported 1 pack/day for 25 years Cannabis: Reported he started using cannabis daily several months ago Alcohol: Reported the alcohol use to be a problem in the past, reported that he started using alcohol when he was 16 years old number reported using 12 pack of beer and 1/5 of hard liquor daily. Reported that he had couple of DUI, 1 he when he was 18 years old and as of 1 last year, reported that he went to prison for 90 days. Reported that he has been sober for 1 year however he relapsed last and he had 1 bottle of wine. Illicit substance use: Patient denies FAMILY PSYCHIATRIC/SUBSTANCE USE HISTORY: denies any family history of mental illness, suicide or substance use SOCIAL HISTORY: Patient was born and raised in [place]. States that he finished high school and went to vocational school [employer] for 2 years, ported that he works for [employer] for the last 7 months, and he used to be a [employer] tech for 19 years. Reported that he was 5 years ago, was for 2 years and together for 19 years. He has 10 years old son and 17 years old daughter both reside with his ex-. MENTAL STATUS EXAM: General Appearance: Patient appears to be stated age is alert, directable, and attempts to cooperate. Patient appears to have fair hygiene and grooming. Behavior: Patient is seated without any agitated behavior. Speech: Patient's speech is fluent and nonpressured. Mood/Affect: Patient reports their mood is " paranoid", affect is congruent and constricted. Suicidality/Homicidality: Patient denies having any homicidal ideation intent or plan. Denies any suicidal ideations intent or plan Perceptions: Patient denies any visual hallucinations and denies any auditory hallucinations Though content/process: There is no evidence of any delusional thought content and thought process is linear and goal-directed. Memory and concentration: AOX3, grossly intact for the purposes of this session. Can spell "WORLD" backwards Judgment and insight: poor STRENGTHS/WEAKNESSES: strength is that patient is resilient, has stable housing, has a job. Weakness is that patient has poor judgment and is impulsive INTELLECT: average IMPRESSIONS: -Psychosis unspecified, rule out due to cannabis use -Rule out bipolar 2 disorder -Rule out delusional jealousy -History of alcohol use disorder, severe, in early remission -Cannabis use disorder - Nicotine use disorder PLAN: -Patient is admitted under voluntary status to [facility] for stabilization of psychiatric symptoms and safety. -Medications : Start Abilify 2 mg p.o. at bedtime help with patient's symptoms and for mood stability May consider starting antidepressant pending the patient home medication list -Ativan and Haldol PRN for agitation/aggression -Patient was counselled on substance abuse and desired to cut back on use nicotine and tobacco, education was provided into alcohol use and patient reported that he has been sober for a year and is not considering to use again. -Will offer patient subtance use rehab, patient declined at this time -Patient was informed of the risks, benefits and side effects of the medication and patient verbally consented to taking the medications. Patient signed med consent form and was placed in chart. -Internal Medicine consult to perform medical evaluation and physical. -NRT -nicotine patch -SW on board for discharge planning. Encourage patient to participate in groups to work on coping skills. 04/12/24 16:22
[2024-04-12] MEDS: ARIPiprazole 2 MG TAB PO SCH (21:12)
[2024-04-13 08:37] LABS: ALT 16 U/L (4-49); AST 20 U/L (17-59); Albumin 4.2 g/dL (3.5-5.0); Alkaline Phosphatase 79 U/L (38-126); Bilirubin, Delta 0.1 mg/dL (0.0-0.2); Bilirubin,Unconjugated 0.7 mg/dL (0.0-1.1); Total Bilirubin 0.8 mg/dL (0.2-1.3); Total Protein 6.4 g/dL (6.3-8.2)
[2024-04-13] MEDS: TIOTROPIUM 2.5 MCG INHALER (MHU) INHALATION SCH (08:55)
[2024-04-13] MEDS: LOSARTAN-HCTZ 50-12.5 MG 1 EACH TAB PO SCH (08:56)
[2024-04-13 15:07] LABS: Chol/HDL Ratio 3.65 Ratio; LDL Cholesterol,Calculated 103.5 mg/dL (0.0-131.0); VLDL Calculation 17.74 mg/dL (5.00-40.00)
--- NOTE | 2024-04-13 15:12 | P.PN ---
Progress Note - Text Progress Note Date: 04/13/24 Dictation was produced using [employer] dictation software. Please excuse any grammatical, word or spelling errors. Interval history: Patient reported that he is feeling well overall, slept good last night, pt denied any current depression, or anxiety, denied any current SI/HI or AVH. States that he has been taking his medication, he denied any current side effects. He states that he spoke to his sister and reported that all of his family has been very supportive. Patient was provided into cannabis use and reported that he want to stop using cannabis and reported now he recognizes paranoia are mostly related to his cannabis use. He states that he is future oriented and looking forward to go back home tomorrow. Reported that he want to go back to his job. He has no other concerns at this time. MENTAL STATUS EXAM: General Appearance: Patient appears to be stated age is alert, directable, and attempts to cooperate. Patient appears to have fair hygiene and grooming. Behavior: Patient is seated without any agitated behavior. Speech: Patient's speech is fluent and nonpressured. Mood/Affect: Patient reports their mood is "good", affect is congruent. Suicidality/Homicidality: Patient denies having any homicidal ideation intent or plan. Denies any suicidal ideations intent or plan Perceptions: Patient denies any visual hallucinations and denies any auditory hallucinations Though content/process: There is no evidence of any delusional thought content and thought process is linear and goal-directed. Memory and concentration: AOX3, grossly intact for the purposes of this session. Can spell "WORLD" backwards Judgment and insight: improving IMPRESSIONS: -Psychosis unspecified, rule out due to cannabis use -Rule out delusional jealousy -History of alcohol use disorder, severe, in early remission -Cannabis use disorder -Nicotine use disorder PLAN: -Patient is admitted under voluntary status to [facility] for stabilization of psychiatric symptoms and safety. -Medications : Continue Abilify 2 mg p.o. at bedtime help with patient's symptoms and for mood stability -Ativan and Haldol PRN for agitation/aggression -Patient was counselled on substance abuse and desired to cut back on use nicotine and tobacco, education was provided into alcohol use and patient reported that he has been sober for a year and is not considering to use again. -Will offer patient subtance use rehab, patient declined at this time -Patient was informed of the risks, benefits and side effects of the medication and patient verbally consented to taking the medications. Patient signed med consent form and was placed in chart. -Internal Medicine consult to perform medical evaluation and physical. -NRT -nicotine patch -SW on board for discharge planning. Encourage patient to participate in groups to work on coping skills. Patient is tentative for discharge tomorrow if you continue to improve.
[2024-04-14 08:22] VITALS: BP 141/89; PULSE 89; TEMP 97.7
--- NOTE | 2024-04-14 17:08 | P.DS ---
Providers Date of admission: 04/12/24 03:00 Expected date of discharge: 04/14/24 Attending physician: Marilee Posadas MD Consults: 04/12/24 03:10 Consult Physician Routine Consulting Provider: Levi Bar Consult Reason/Comments: Medical H&P Do you want consulting provider notified?: Yes Primary care physician: Levi Bar [facility] Course: Dictation was produced using [employer] dictation software. Please excuse any grammatical, word or spelling errors. Admission HPI: Patient presented to the hospital for paranoid thoughts, he has a history of alcohol use disorder and relapsed on Thursday. He states that his sister counselor asked him to go to the hospital to be evaluated since he had been having those paranoid thoughts. He states that he been having issues with his ex- " Birgit" and reported that she is very active and Tik[employer], reported that he has been monitoring her posting and the comments she gets and reported that it seems like there is something radiated to " prostitution, and scam," reported that he told her about how he feels and she was kind of upset and she always thought with him for those behavior. He states that he also has a friend that lives close by and he feels paranoid about him to reported that there is certain words they use makes him paranoid and suspicious about them. He denied any current suicidal, or homicidal thoughts or behavior, intention or plan. Denied any current auditory or visual hallucination. He reported feeling down at times however denied feeling hopeless, helpless, worthless. He reported his sleep is " not bad" noted that he gets 4 hours sleep at night. States that he has been feeling that way for few years however it increased 6 months ago. He states that he has been getting racing thoughts, flights of ideas at times and reported that when he was talking to his outpatient doctor he was started on Adderall with irritability and poor concentration and focus. He denied any previous history of abuse or trauma, reported that he had concussion as a child. He states that he wanted to get him help and willing to take medication. Admission note was completed by commercial loan underwriter Hospital course: Upon admission to the unit patient was directable and agreeable to commence treatment and signed adult voluntary form. Patient got along well with other patients on the unit and followed unit protocol. Patient was compliant with the medications and denied any side effects throughout hospital course. Patient was started on Abilify 2 mg p.o. hs. Patient spoke of his stressors and engaged in therapy both group and individual. Patient was also seen by medical team for history and physical exam. Throughout the course of the hospitalization patient gradually improved with regards to mood, anxiety, sleep and returned back to their baseline level of functioning, became more future oriented with improved insight and judgment. On the day of discharge patient denied any suicidal or homicidal ideations intent or plan denied any auditory or visual hallucinations. Patient endorsed wanting to live for their health and family. The patient denied any access to guns or weapons. Patient denied any paranoia and did not endorse any delusions. Patient does have a history of substance abuse including cannabis, alcohol, and nicotine and was counseled on abstaining from all substances including alcohol and marijuana. Patient was offered however declined inpatient/outpatient substance-abuse rehab. Patient was also counseled on the medications and need for regular compliance and was encouraged to follow-up with their outpatient appointment for mental health and also for primary care. Prior to discharge social media community manager was able to get in contact with the patient and family including his parent and sister, she answer any questions and ensure safety upon discharge including making sure that guns/weapons are either removed from the home or locked away. Mental status exam: General Appearance: Patient appears to be stated age is alert, directable, and attempts to cooperate. Patient appears to have fair hygiene and grooming. Behavior: Patient is seated without any agitated behavior. Speech: Patient's speech is fluent and nonpressured. Mood/Affect: Patient reports their mood is "very good", affect is congruent. Suicidality/Homicidality: Patient denies having any homicidal ideation intent or plan. Denies any suicidal ideations intent or plan Perceptions: Patient denies any visual hallucinations and denies any auditory hallucinations Though content/process: There is no evidence of any delusional thought content and thought process is linear and goal-directed. Memory and concentration: AOX3, grossly intact for the purposes of this session. Can spell "WORLD" backwards Judgment and insight: improving Impression: -Psychosis unspecified, rule out due to cannabis use -Rule out delusional jealousy -History of alcohol use disorder, severe, in early remission -Cannabis use disorder -Nicotine use disorder Plan: -Continue with discharge today as patient has improved and stabilized psychiatrically and is not currently an imminent threat to themself and/or others. -Continue medications: Abilify 2 mg po hs -Patient was counseled on the need for medication compliance and appropriate follow-up at mental health and also primary care for medical issues. Patient verbalized understanding and agreed. -Social work to help coordinate patients discharge today, they reached out to the pt family to ensure safety upon discharge and answer any questions/concerns. also to ensure safe home environment that guns/weapons are either removed from the home or locked away. Social work also to arrange for patients follow up appointments with [facility] for psychiatric care along with follow up with primary care provider. -Patient counseled on abstaining from recreational drugs and marijuana and alcohol. Was informed/educated on the adverse effects on their physical and mental health. Patient verbally agreed and understood. Patient was offered substance abuse treatment however declined at this time. -Patient was instructed to return to the hospital or seek immediate medical care if their psychiatric or medical symptoms do worsen or reoccur. Allergies Allergy/AdvReac Type Severity Reaction Status Date / Time No Known Allergies Allergy Verified 04/11/24 19:27 Laboratory Results WBC 12.1 k/uL (3.8-10.6) H 04/11/24 22:43 RBC 5.33 m/uL (4.30-5.90) 04/11/24 22:43 Hgb 17.2 gm/dL (13.0-17.5) 04/11/24 22:43 Hct 49.5 % (39.0-53.0) 04/11/24 22:43 MCV 92.8 fL (80.0-100.0) 04/11/24 22:43 MCH 32.3 pg (25.0-35.0) 04/11/24 22:43 MCHC 34.8 g/dL (31.0-37.0) 04/11/24 22:43 RDW 12.9 % (11.5-15.5) 04/11/24 22:43 Plt Count 276 k/uL (150-450) 04/11/24 22:43 MPV 7.1 04/11/24 22:43 Neutrophils % 74 % 04/11/24 22:43 Lymphocytes % 17 % 04/11/24 22:43 Monocytes % 6 % 04/11/24 22:43 Eosinophils % 1 % 04/11/24 22:43 Basophils % 0 % 04/11/24 22:43 Neutrophils # 9.0 k/uL (1.3-7.7) H 04/11/24 22:43 Lymphocytes # 2.0 k/uL (1.0-4.8) 04/11/24 22:43 Monocytes # 0.7 k/uL (0-1.0) 04/11/24 22:43 Eosinophils # 0.2 k/uL (0-0.7) 04/11/24 22:43 Basophils # 0.1 k/uL (0-0.2) 04/11/24 22:43 PT 11.5 sec (10.0-12.5) 04/11/24 22:43 INR 1.0 (<1.2) 04/11/24 22:43 Sodium 134 mmol/L (137-145) L 04/11/24 22:43 Potassium 3.8 mmol/L (3.5-5.1) 04/11/24 22:43 Chloride 99 mmol/L (98-107) 04/11/24 22:43 Carbon Dioxide 24 mmol/L (22-30) 04/11/24 22:43 Anion Gap 11 mmol/L 04/11/24 22:43 BUN 12 mg/dL (9-20) 04/11/24 22:43 Creatinine 0.92 mg/dL (0.66-1.25) 04/11/24 22:43 Est GFR (CKD-EPI)AfAm >90 (>60 ml/min/1.73 sqM) 04/11/24 22:43 Est GFR (CKD-EPI)NonAf >90 (>60 ml/min/1.73 sqM) 04/11/24 22:43 Glucose 96 mg/dL (74-99) 04/11/24 22:[address] Glu mg/dL 111 mg/dL 04/13/24 07:51 Hemoglobin A1c 5.5 % (<=6.0) 04/13/24 07:51 Calcium 9.8 mg/dL (8.4-10.2) 04/11/24 22:43 Phosphorus 4.2 mg/dL (2.5-4.5) 04/11/24 22:43 Magnesium 2.1 mg/dL (1.6-2.3) 04/11/24 22:43 Total Bilirubin 0.8 mg/dL (0.2-1.3) 04/13/24 07:51 Conjugated Bilirubin 0.0 mg/dL (0.0-0.3) 04/13/24 07:51 Unconjugated Bilirubin 0.7 mg/dL (0.0-1.1) 04/13/24 07:51 Delta Bilirubin 0.1 mg/dL (0.0-0.2) 04/13/24 07:51 AST 20 U/L (17-59) 04/13/24 07:51 ALT 16 U/L (4-49) 04/13/24 07:51 Alkaline Phosphatase 79 U/L (38-126) 04/13/24 07:51 Ammonia 18 umol/L (<30) 04/12/24 00:57 Total Protein 6.4 g/dL (6.3-8.2) 04/13/24 07:51 Albumin 4.2 g/dL (3.5-5.0) 04/13/24 07:51 Triglycerides 88.70 mg/dL (0.00-149.00) 04/13/24 07:51 Cholesterol 167.00 mg/dL (0.00-200.00) 04/13/24 07:51 LDL Cholesterol, Calc 103.5 mg/dL (0.0-131.0) 04/13/24 07:51 VLDL Cholesterol, Calc 17.74 mg/dL (5.00-40.00) 04/13/24 07:51 HDL Cholesterol 45.80 mg/dL (40.00-60.00) 04/13/24 07:51 Cholesterol/HDL Ratio 3.65 Ratio 04/13/24 07:51 Lipase 42 U/L (23-300) 04/11/24 22:43 TSH 1.070 mIU/L (0.465-4.680) 04/13/24 07:51 Urine Color Colorless 04/11/24 22:36 Urine Appearance Clear (Clear) 04/11/24 22:36 Urine pH 5.5 (5.0-8.0) 04/11/24 22:36 Ur Specific [place] 1.010 (1.001-1.035) 12/16/24 22:36 Urine Protein Negative (Negative) 04/11/24 22:36 Urine Glucose (UA) Negative (Negative) 04/11/24 22:36 Urine Ketones Negative (Negative) 04/11/24 22:36 Urine Blood Negative (Negative) 04/11/24 22:36 Urine Nitrite Negative (Negative) 04/11/24 22:36 Urine Bilirubin Negative (Negative) 04/11/24 22:36 Urine Urobilinogen <2.0 mg/dL (<2.0) 04/11/24 22:36 Ur Leukocyte Esterase Negative (Negative) 04/11/24 22:36 Urine Opiates Screen Not Detected (NotDetected) 04/11/24 22:36 Ur Oxycodone Screen Not Detected (NotDetected) 04/11/24 22:36 Urine Methadone Screen Not Detected (NotDetected) 04/11/24 22:36 Ur Barbiturates Screen Not Detected (NotDetected) 04/11/24 22:36 U Tricyclic Antidepress Not Detected (NotDetected) 04/11/24 22:36 Ur Phencyclidine Scrn Not Detected (NotDetected) 04/11/24 22:36 Ur Amphetamines Screen Detected (NotDetected) H 04/11/24 22:36 U Methamphetamines Scrn Not Detected (NotDetected) 04/11/24 22:36 U Benzodiazepines Scrn Not Detected (NotDetected) 04/11/24 22:36 Urine Cocaine Screen Not Detected (NotDetected) 04/11/24 22:36 U Marijuana (THC) Screen Detected (NotDetected) H 04/11/24 22:36 Serum Alcohol <10 mg/dL 04/11/24 22:43 Influenza Type A (PCR) Not Detected (Not Detectd) 04/12/24 01:27 Influenza Type B (PCR) Not Detected (Not Detectd) 04/12/24 01:27 RSV (PCR) Not Detected (Not Detectd) 04/12/24 01:27 SARS-CoV-2 (PCR) Not Detected (Not Detectd) 04/12/24 01:27 Vital Signs Temp 97.7 F 04/14/24 08:21 Pulse 89 04/14/24 08:21 Resp 16 04/14/24 08:21 BP 141/89 04/14/24 08:21 Pulse Ox 98 04/14/24 08:21 FiO2 Patient Condition at Discharge: Stable Plan - Discharge Summary Discharge Rx Participant: Yes New Discharge Prescriptions: New ARIPiprazole [Abilify] 2 mg PO HS 30 Days #30 tab Nicotine 21Mg/24Hr Patch [Habitrol] 1 patch TRANSDERM DAILY 15 Days #15 patch Continue Losartan-Hctz 50-12.5 mg [Hyzaar 50-12.5] 1 tab PO DAILY Tiotropium 2.5 Mcg/Puff [Spiriva Respimat 2.5 Mcg] 2 puff INHALATION RT-DAILY Discontinued Dextroamphetamine/Amphetamine [Adderall] 15 mg PO BID Discharge Medication List Losartan-Hctz 50-12.5 mg [Hyzaar 50-12.5] 1 tab PO DAILY 04/12/24 [History] Tiotropium 2.5 Mcg/Puff [Spiriva Respimat 2.5 Mcg] 2 puff INHALATION RT-DAILY 04/12/24 [History] ARIPiprazole [Abilify] 2 mg PO HS 30 Days #30 tab 04/14/24 [Rx] Nicotine 21Mg/24Hr Patch [Habitrol] 1 patch TRANSDERM DAILY 15 Days #15 patch 04/14/24 [Rx] Follow up Appointment(s)/Referral(s): [facility] [Outside] - 04/15/24 9:30 am (with [place]) Levi Bar MD [Primary Care Provider] - 1-2 days Patient Instructions/Handouts: How to Stop Smoking (DC), Abuse of Alcohol (DC), Cannabis Abuse (DC), Psychotic Disorder (DC) Activity/Diet/Wound Care/Special Instructions: [facility] Discharge Info Avoid the use of street drugs and alcohol. Take all medications as prescribed. When you are in need of refills on your medications, please contact your outpatient medical provider and/or outpatient psychiatrist. Please go to your scheduled outpatient appointments for aftercare treatment. If symptoms return or become worse, call the crisis line at or and/or visit the nearest emergency room for assistance. National Suicide and Crisis Lifeline - call or text 988 Discharge Disposition: HOME SELF-CARE
== END 2024-04-14 12:15 | disposition home or self-care (01) | DRG 885 ==
LOC: EC 19:19 → 3MHU 04-12 03:00
PROVIDERS: ADMIT Psychiatry & Neurology Psychiatry; ATTEND Psychiatry & Neurology Psychiatry
DX: F22 Delusional disorders (principal); F10.21 Alcohol dependence, in remission; F12.11 Cannabis abuse, in remission; F17.210 Nicotine dependence, cigarettes, uncomplicated; F41.9 Anxiety disorder, unspecified; Y90.0 Blood alcohol level of less than 20 mg/100 ml; Z71.41 Alcohol abuse counseling and surveillance of alcoholic; Z71.51 Drug abuse counseling and surveillance of drug abuser; Z71.6 Tobacco abuse counseling; Z79.899 Other long term (current) drug therapy
CPT/HCPCS: 36415; 70450; 80053; 80061; 80076; 80306; 80320; 81003; 82075; 82140; 83036; 83690; 83735; 84100; 84443; 85025; 85610; 87636; 96374; 99285